=== PATIENT | female | born 1985 | race Two or more races ===

== ENCOUNTER 2016-10-12 18:40 | Emergency (ER) | payer SELFPAY ==
--- NOTE | 2016-10-12 19:57 | ER Document Report ---
ED Medical Screen (RME) - General Chief Complaint: Vag Bleeding, +preg <12wks Stated Complaint: VAGINAL BLEEDING Notes: 3 weeks , started spotting with lower abdominal cramping and low back pain. + dysuria. no nausea, vomiting or fever TRAVEL OUTSIDE OF THE [place] IN LAST 30 DAYS: No - Related Data Allergies/Adverse Reactions: No Known Allergies Allergy (Unverified 05/02/16 09:20) Past Medical History - Immunizations Hx Diphtheria, Pertussis, Tetanus Vaccination: Yes
[2016-10-12 20:41] LABS: ABSOLUTE EOSINOPHILS # (AUTO) 0.2 10^3/uL (0.0-0.6); ABSOLUTE LYMPHOCYTES (AUTO) 2.1 10^3/uL (0.5-4.7); ABSOLUTE MONOCYTES (AUTO) 0.9 10^3/uL (0.1-1.4); ABSOLUTE NEUT (AUTO) 10.5 10^3/uL (1.7-8.2); BASOPHILS % (AUTO) 0.2 % (0-2); EOSINOPHILS % (AUTO) 1.7 % (0-6); HEMATOCRIT 38.9 % (36.0-47.0); HEMOGLOBIN 13.3 g/dL (12.0-15.5); MEAN CORPUSCULAR HGB CONC 34.1 g/dL (32.0-36.0); MEAN CORPUSCULAR VOLUME 85 fl (80-97); MONOCYTES % (AUTO) 6.2 % (3-13); RED BLOOD COUNT 4.58 10^6/uL (3.72-5.28); RED CELL DISTRIBUTION WIDTH 13.7 % (11.5-14.0); SEGMENTED NEUTROPHILS % (AUTO) 76.9 % (42-78); WHITE BLOOD COUNT 13.7 10^3/uL (4.0-10.5)
[2016-10-12 20:47] LABS: APPEARANCE,URINE SLIGHTLY-CLOUDY; BILIRUBIN,URINE NEGATIVE (NEGATIVE); GLUCOSE, URINE NEGATIVE (NEGATIVE); KETONES,URINE TRACE mg/dL (NEGATIVE); LEUKOCYTE ESTERASE,URINE NEGATIVE (NEGATIVE); NITRITE,URINE NEGATIVE (NEGATIVE); PROTEIN,URINE NEGATIVE (NEGATIVE); URINE SPECIFIC GRAVITY 1.008; UROBILINOGEN,URINE NEGATIVE mg/dL (<2.0)
--- NOTE | 2016-10-13 02:24 | ER Document Report ---
ED General - General Chief Complaint: Vag Bleeding, +preg <12wks Stated Complaint: VAGINAL BLEEDING Notes: Patient is a 31-year-old female at unknown gestation who presents with vaginal bleeding and mild suprapubic abdominal pain. States this started several hours prior to arrival. She has not yet established primary OB care. Describes abdominal pain as a mild, cramping pain. States that the bleeding was about typical for a menstrual period. Denies any additional associated symptoms. No fever or vomiting. States that her prior did and in a spontaneous miscarriage at 9 weeks. TRAVEL OUTSIDE OF THE [place] IN LAST 30 DAYS: No - HPI Onset: This afternoon Onset/Duration: Gradual Quality of pain: Cramping Severity: Mild Pain Level: 1 Associated symptoms: Other - Vaginal bleeding Exacerbated by: Denies Relieved by: Denies Similar symptoms previously: Yes Recently seen / treated by doctor: No - Related Data Allergies/Adverse Reactions: No Known Allergies Allergy (Unverified 05/02/16 09:20) Past Medical History - General Information source: Patient - Social History Smoking Status: Never Smoker Frequency of alcohol use: None Drug Abuse: None Lives with: Spouse/Significant other Family History: Reviewed & Not Pertinent - Immunizations Hx Diphtheria, Pertussis, Tetanus Vaccination: Yes Review of Systems - Review of Systems Notes: Constitutional: Negative for fever. HENT: Negative for sore throat. Eyes: Negative for visual changes. Cardiovascular: Negative for chest pain. Respiratory: Negative for shortness of breath. Gastrointestinal: Positive for mild suprapubic abdominal cramping, vomiting or diarrhea. Genitourinary: Negative for dysuria. Positive for vaginal bleeding Musculoskeletal: Negative for back pain. Skin: Negative for rash. Neurological: Negative for headaches, weakness or numbness. 10 point ROS negative except as marked above and in HPI. Physical Exam - Vital signs Vitals: Pulse BP Pulse Ox 80 131/79 H 100 10/13/16 02:37 10/13/16 02:37 10/13/16 02:37 Interpretation: Normal Notes: PHYSICAL EXAMINATION: GENERAL: Well-appearing, well-nourished and in no acute distress. HEAD: Atraumatic, normocephalic. EYES: Pupils equal round and reactive to light, extraocular movements intact, sclera anicteric, conjunctiva are normal. ENT: nares patent, oropharynx clear without exudates. Moist mucous membranes. NECK: Normal range of motion, supple without lymphadenopathy LUNGS: Breath sounds clear to auscultation bilaterally and equal. No wheezes rales or rhonchi. HEART: Regular rate and rhythm without murmurs ABDOMEN: Soft, nontender, normoactive bowel sounds. No guarding, no rebound. No masses appreciated. EXTREMITIES: Normal range of motion, no pitting or edema. No cyanosis. NEUROLOGICAL: No focal neurological deficits. Moves all extremities spontaneously and on command. PSYCH: Normal mood, normal affect. SKIN: Warm, Dry, normal turgor, no rashes or lesions noted. Course - Re-evaluation Re-evalutation: 10/13/16 04:57 Patient presents with vaginal bleeding now discontinued and mild suprapubic abdominal pain in a setting of . Her exact gestational age is unclear although her quantitative beta hCG is at 3300. I was unable to visualize anything on a bedside ultrasound so formal ultrasound was obtained. Likewise no intrauterine could be identified likewise no ectopic was identified. I discussed this case with Dr. Leary the RAFTER CUTTING MACHINE OPERATOR on-call who has recommended the patient follow-up in clinic in the morning. The remainder patient's laboratories are likewise unremarkable and RhoGAM is not indicated. Her abdominal exam remained benign.At this time will discharge with return precautions and follow-up recommendations. Verbal discharge instructions given a the bedside and opportunity for questions given. Medication warnings reviewed. Patient is in agreement with this plan and has verbalized understanding of return precautions and the need for follow-up in the morning - Vital Signs Vital signs: Temp Pulse Resp BP Pulse Ox 80 131/79 H 100 10/13/16 02:37 10/13/16 02:37 10/13/16 02:37 - Laboratory Result Diagrams: 10/12/16 20:05 Laboratory results interpreted by me: 10/12/16 10/12/16 10/12/16 20:05 20:05 20:05 WBC 13.7 H Absolute Neutrophils 10.5 H Beta HCG, Quant 3354.90 H Urine Ketones TRACE H Urine Blood LARGE H - Diagnostic Test Radiology reviewed: Reports reviewed Discharge - Discharge Clinical Impression: First trimester bleeding, of unknown anatomic location Condition: Good Disposition: HOME, SELF-CARE Additional Instructions: You need to go to the women's clinic tomorrow morning. Please call 8 AM on the number provided in your discharge paperwork to schedule this appointment. Is very important that you do not miss this appointment. Please return if you develop severe abdominal pain, bleeding that goes through more than 2 pads for more than 2 hours, pass out, or have any other symptoms that are concerning to you. Referrals: ABBIE APARICIO, [SUSANNE CHISHOLM] - Follow up tomorrow
[2016-10-13 02:42] VITALS: BP 131/79
== END 2016-10-13 02:42 | disposition home or self-care (01) ==
LOC: ER 18:40
DX: O46.91 Antepartum hemorrhage, unspecified, first trimester (principal); R10.9 Unspecified abdominal pain
CPT/HCPCS: 36415; 76817; 81001; 84702; 85025; 86900; 86901; 99284

== ENCOUNTER 2016-10-13 17:06 | Observation (INO) | payer SELFPAY ==
[2016-10-13] MEDS ORDERED: FLUCONAZOLE 100 MG TABLET PO ONE (18:45)
[2016-10-13] MEDS: RINGERS SOLUTION,LACTATED 1,000 ML IV PRN (18:53)
[2016-10-13] MEDS ORDERED: INFLUENZA ADLT QUAD (36MOS+) 2016-17 VAC 0.5 ML SYR IM PRN (19:37)
[2016-10-14] MEDS: RINGERS SOLUTION,LACTATED 1,000 ML IV PRN ×2 (01:58→10:04)
[2016-10-14 07:44] LABS: ABSOLUTE EOSINOPHILS # (AUTO) 0.3 10^3/uL (0.0-0.6); ABSOLUTE LYMPHOCYTES (AUTO) 1.8 10^3/uL (0.5-4.7); ABSOLUTE MONOCYTES (AUTO) 0.7 10^3/uL (0.1-1.4); BASOPHILS % (AUTO) 0.3 % (0-2); EOSINOPHILS % (AUTO) 2.9 % (0-6); HEMATOCRIT 36.2 % (36.0-47.0); HEMOGLOBIN 12.4 g/dL (12.0-15.5); LYMPHOCYTES % (AUTO) 20.2 % (13-45); MEAN CORPUSCULAR HEMOGLOBIN 29.2 pg (27.0-33.4); MEAN CORPUSCULAR HGB CONC 34.2 g/dL (32.0-36.0); MEAN CORPUSCULAR VOLUME 85 fl (80-97); MONOCYTES % (AUTO) 8.1 % (3-13); RED BLOOD COUNT 4.26 10^6/uL (3.72-5.28); RED CELL DISTRIBUTION WIDTH 13.7 % (11.5-14.0); SEGMENTED NEUTROPHILS % (AUTO) 68.5 % (42-78); WHITE BLOOD COUNT 8.8 10^3/uL (4.0-10.5)
[2016-10-14 08:02] LABS: ALANINE AMINOTRANSFERASE 76 U/L (9-52); ALBUMIN 2.9 g/dL (3.5-5.0); ALKALINE PHOSPHATASE 46 U/L (38-126); ANION GAP 10 (5-19); ASPARTATE AMINO TRANSFERASE 44 U/L (14-36); BILIRUBIN,TOTAL 0.5 mg/dL (0.2-1.3); BLOOD UREA NITROGEN 11 mg/dL (7-20); CALCIUM 8.8 mg/dL (8.4-10.2); CARBON DIOXIDE 23 mmol/L (22-30); CHLORIDE 106 mmol/L (98-107); CREATININE RESULT 0.65 mg/dL (0.52-1.25); GLUCOSE 99 mg/dL (75-110); POTASSIUM 3.7 mmol/L (3.6-5.0); SODIUM 139.2 mmol/L (137-145); TOTAL PROTEIN 5.4 g/dL (6.3-8.2)
[2016-10-14] MEDS ORDERED: MISOPROSTOL 0.2 MG TABLET PO ONE (12:00)
[2016-10-14 12:07] VITALS: BP 113/61
--- NOTE | 2016-10-14 15:37 | PDOC DISCHARGE SUMMARY ---
General - Admit/Disc Date/PCP Admission Date/Primary Care Provider: 10/13/16 17:06 KINGS NEGRON MD Discharge Date: 10/14/16 - Discharge Diagnosis (1) Incomplete Is this a current diagnosis for this admission?: YesSummary: Pt admitted with spotting and low back pain - Additional Information Resuscitation Status: Full Code Discharge Diet: As Tolerated, Regular Discharge Activity: Balance Activity w/Rest, Pelvic Rest Home Medications: Multivitamin [Multivitamins] 1 each PO DAILY 10/13/16 History of Present Illness History of Present Illness: DUC CONTRERAS is a 31 year old female Pt had spotting and low back pain. Pain resolved spontaneously. She had bhcg 3400 and nonconclusive sono findings 2 day ago. She was admitted for evaluation possible ectopic Hospital Course Hospital Course: PT had spontaneous resolution of pain and bleeding. BHCG only increased to 4975 which is less than expected. sono shows possible collapsing gestational sac in uterus and intruterine fluid. No iup or yolk sac can be identified. both ovaries appear nl and no ectopic preg is evident. Options were discussed with the pt through the [facility] system and included observation, medical induction of miscarriage through cytotec and surgical mgmt. Pt wanted to try cytotec and go home over weekend. She will f/u Monday in office. Precautions were discussed and pt advised to return to ED if complications. Physical Exam - Physical Exam Vital Signs: Temp Pulse Resp BP Pulse Ox 98.2 F 72 15 113/61 98 10/14/16 11:49 10/14/16 11:49 10/14/16 11:49 10/14/16 11:49 10/14/16 11:49 Intake & Output 10/13/16 10/14/16 10/15/16 06:59 06:59 06:59 Intake Total 300 Balance 300 Weight 68.4 kg GI/Abdominal exam: PRESENT: normal bowel sounds, soft. ABSENT: distended, guarding, mass, organolmegaly, rebound, tenderness Result Laboratory Results: 10/14/16 07:14 10/14/16 07:14 10/14/16 10/14/16 10/14/16 07:14 07:14 07:14 WBC 8.8 RBC 4.26 Hgb 12.4 Hct 36.2 MCV 85 MCH 29.2 MCHC 34.2 RDW 13.7 Plt Count 310 Seg Neutrophils % 68.5 Lymphocytes % 20.2 Monocytes % 8.1 Eosinophils % 2.9 Basophils % 0.3 Absolute Neutrophils 6.0 Absolute Lymphocytes 1.8 Absolute Monocytes 0.7 Absolute Eosinophils 0.3 Absolute Basophils 0.0 Sodium 139.2 Potassium 3.7 Chloride 106 Carbon Dioxide 23 Anion Gap 10 BUN 11 Creatinine 0.65 Est GFR ( Amer) > 60 Est GFR (Non-Af Amer) > 60 Glucose 99 Calcium 8.8 Total Bilirubin 0.5 AST 44 H ALT 76 H Alkaline Phosphatase 46 Total Protein 5.4 L Albumin 2.9 L Blood Type Cancelled Antibody Screen Cancelled 10/14/16 07:52 WBC RBC Hgb Hct MCV MCH MCHC RDW Plt Count Seg Neutrophils % Lymphocytes % Monocytes % Eosinophils % Basophils % Absolute Neutrophils Absolute Lymphocytes Absolute Monocytes Absolute Eosinophils Absolute Basophils Sodium Potassium Chloride Carbon Dioxide Anion Gap BUN Creatinine Est GFR ( Amer) Est GFR (Non-Af Amer) Glucose Calcium Total Bilirubin AST ALT Alkaline Phosphatase Total Protein Albumin Blood Type A POSITIVE Antibody Screen NEGATIVE Plan Discharge Plan: Discharge home after cytotec 800mcg given po. Pt to take motrin/tylenol as needed Pt scheduled for f/u Mon Morning. Pt also met with business planner prior to d/c
[2016-10-15 06:38] LABS: HEPATITIS C VIRUS AB <0.1 s/co ratio (0.0-0.9)
== END 2016-10-14 16:35 | disposition home or self-care (01) ==
LOC: 2S 17:06
PROVIDERS: ADMIT Specialist; ATTEND Specialist
DX: O03.39 Incomplete spontaneous abortion with other complications (principal); M54.5 Low back pain; R10.2 Pelvic and perineal pain; O26.851 Spotting complicating pregnancy, first trimester; Z3A.01 Less than 8 weeks gestation of pregnancy
CPT/HCPCS: 86900; 86901; 36415; 86850; 84702; 85025; 80053; 87340 ×2; 86704; 86705; 86706; 86707; 86803; 87350; G0378 ×2; G0379; J7120 ×2

== ENCOUNTER → 2016-10-17 | Outpatient (CLI) | payer SELFPAY | LOC: LAB 09:55 | PROVIDERS: ATTEND Specialist | DX: O03.89 Complete or unspecified spontaneous abortion with other complications (principal) | CPT/HCPCS: 36415; 84702 ==

== ENCOUNTER → 2016-10-24 | Outpatient (CLI) | payer SELFPAY | LOC: LAB 11:24 | PROVIDERS: ATTEND Specialist | DX: O03.9 Complete or unspecified spontaneous abortion without complication (principal) | CPT/HCPCS: 36415; 84702 ==

== ENCOUNTER 2017-10-19 12:23 | Emergency (ER) | payer OTHER ==
[2017-10-19] MEDS ORDERED: NORMAL SALINE 1000 ML 1,000 ML IV PRN ×3 (14:22→17:56)
--- NOTE | 2017-10-19 14:26 | ER Document Report ---
ED Medical Screen (RME) - General Chief Complaint: Abdominal Pain Stated Complaint: ABDOMINAL PAIN Time Seen by Provider: 10/19/17 14:18 TRAVEL OUTSIDE OF THE [place] IN LAST 30 DAYS: No - HPI Notes: 10/19/17 14:24 32-year-old female presents today with complaints of right lower quadrant pain and right flank pain 1 day. Patient states pain is continuous, feels stabbing. Denies any trauma. Patient's last period was September 25, 2017. Patient is sexually active. Unsure . Has not tried any over-the- counter medications. Denies any chest pain, shortness of breath, nausea, vomiting, diarrhea, blurred vision, double vision, loss of vision. Denies any lightheadedness or dizziness. Denies any history of ovarian cysts or torsions. Patient denies any fevers or chills. States pain is getting worse with time. I have greeted and performed a rapid initial assessment of this patient. A comprehensive ED assessment and evaluation of the patient, analysis of test results and completion of medical decision making process will be conducted by an additional ED providers. - Related Data Allergies/Adverse Reactions: No Known Allergies Allergy (Verified 10/19/17 12:23) Home Medications: Current Home Medications No Home Medications 10/19/17 [History] Past Medical History - Social History Chew tobacco use (# tins/day): No Frequency of alcohol use: None Drug Abuse: None - Past Medical History Cardiac Medical History: Denies: Hx Congestive Heart Failure, Hx Heart Attack, Hx Hypertension Pulmonary Medical History: Denies: Hx Asthma, Hx Bronchitis, Hx COPD, Hx Pneumonia, Hx Tuberculosis Neurological Medical History: Denies: Hx Seizures Renal/ Medical History: Denies: Hx End Stage Renal Disease, Hx Kidney Stones, Hx Peritoneal Dialysis GI Medical History: Reports: Hx Gastroesophageal Reflux Disease. Denies: Hx Cirrhosis, Hx Ulcer Musculoskeltal Medical History: Denies Hx Arthritis, Denies Hx Multiple Sclerosis Psychiatric Medical History: Denies: Hx Bipolar Disorder, Hx Depression, Hx Schizophrenia - Immunizations Hx Diphtheria, Pertussis, Tetanus Vaccination: Yes Physical Exam - Vital signs Vitals: Temp Pulse Resp BP Pulse Ox 98.6 F 87 14 135/87 H 99 10/19/17 12:29 10/19/17 12:29 10/19/17 12:29 10/19/17 12:29 10/19/17 12:29 Course - Vital Signs Vital signs: Temp Pulse Resp BP Pulse Ox 98.6 F 87 14 135/87 H 99 10/19/17 12:29 10/19/17 12:29 10/19/17 12:29 10/19/17 12:29 10/19/17 12:29
[2017-10-19 14:56] LABS: ABSOLUTE BASOPHILS # (AUTO) 0.1 10^3/uL (0.0-0.2); ABSOLUTE EOSINOPHILS # (AUTO) 0.2 10^3/uL (0.0-0.6); ABSOLUTE LYMPHOCYTES (AUTO) 2.2 10^3/uL (0.5-4.7); ABSOLUTE MONOCYTES (AUTO) 0.7 10^3/uL (0.1-1.4); ABSOLUTE NEUT (AUTO) 8.1 10^3/uL (1.7-8.2); BASOPHILS % (AUTO) 0.6 % (0-2); EOSINOPHILS % (AUTO) 1.5 % (0-6); HEMATOCRIT 42.1 % (36.0-47.0); HEMOGLOBIN 14.2 g/dL (12.0-15.5); LYMPHOCYTES % (AUTO) 19.4 % (13-45); MEAN CORPUSCULAR HEMOGLOBIN 28.4 pg (27.0-33.4); MEAN CORPUSCULAR HGB CONC 33.7 g/dL (32.0-36.0); MEAN CORPUSCULAR VOLUME 84 fl (80-97); MONOCYTES % (AUTO) 5.9 % (3-13); PLATELET COUNT 448 10^3/uL (150-450); RED BLOOD COUNT 4.99 10^6/uL (3.72-5.28); RED CELL DISTRIBUTION WIDTH 13.5 % (11.5-14.0); SEGMENTED NEUTROPHILS % (AUTO) 72.6 % (42-78); TOTAL CELLS COUNTED % (AUTO) 100 %; WHITE BLOOD COUNT 11.2 10^3/uL (4.0-10.5)
[2017-10-19 15:00] LABS: APPEARANCE,URINE SLIGHTLY-CLOUDY; BILIRUBIN,URINE NEGATIVE (NEGATIVE); COLOR,URINE YELLOW; GLUCOSE, URINE NEGATIVE (NEGATIVE); KETONES,URINE 20 mg/dL (NEGATIVE); LEUKOCYTE ESTERASE,URINE NEGATIVE (NEGATIVE); NITRITE,URINE NEGATIVE (NEGATIVE); PROTEIN,URINE NEGATIVE (NEGATIVE); UROBILINOGEN,URINE NEGATIVE mg/dL (<2.0)
[2017-10-19 15:19] LABS: ALANINE AMINOTRANSFERASE 26 U/L (9-52); ALBUMIN 4.6 g/dL (3.5-5.0); ALKALINE PHOSPHATASE 77 U/L (38-126); ANION GAP 15 (5-19); ASPARTATE AMINO TRANSFERASE 18 U/L (14-36); BILIRUBIN,DIRECT 0.2 mg/dL (0.0-0.4); BILIRUBIN,TOTAL 0.8 mg/dL (0.2-1.3); BLOOD UREA NITROGEN 14 mg/dL (7-20); CALCIUM 10.3 mg/dL (8.4-10.2); CARBON DIOXIDE 23 mmol/L (22-30); CHLORIDE 105 mmol/L (98-107); GLUCOSE 94 mg/dL (75-110); POTASSIUM 3.9 mmol/L (3.6-5.0); SODIUM 143.3 mmol/L (137-145); TOTAL PROTEIN 7.8 g/dL (6.3-8.2)
--- NOTE | 2017-10-19 15:38 | ER Document Report ---
ED General - General Chief Complaint: Abdominal Pain Stated Complaint: ABDOMINAL PAIN Time Seen by Provider: 10/19/17 14:18 TRAVEL OUTSIDE OF THE [place] IN LAST 30 DAYS: No - HPI Notes: 32-year-old female presents today with complaints of right lower quadrant pain and right flank pain 1 day. Patient states pain is continuous, feels stabbing. Denies any trauma. Patient's last period was September 25, 2017. Patient is sexually active. Unsure . Menstrual period was September has not tried any [id number] medications. Denies any chest pain, shortness of breath, nausea, vomiting, diarrhea, blurred vision, double vision, loss of vision. Denies any lightheadedness or dizziness. Denies any history of ovarian cysts or torsions. Patient denies any fevers or chills. States pain is getting worse with time. I have greeted and performed a rapid initial assessment of this patient. pain is 4/10, sharp. - Related Data Allergies/Adverse Reactions: No Known Allergies Allergy (Verified 10/19/17 12:23) Past Medical History - General Information source: Patient - Social History Smoking Status: Never Smoker Chew tobacco use (# tins/day): No Frequency of alcohol use: None Drug Abuse: None Family History: Reviewed & Not Pertinent Patient has suicidal ideation: No Patient has homicidal ideation: No - Past Medical History Cardiac Medical History: Denies: Hx Congestive Heart Failure, Hx Heart Attack, Hx Hypertension Pulmonary Medical History: Denies: Hx Asthma, Hx Bronchitis, Hx COPD, Hx Pneumonia, Hx Tuberculosis Neurological Medical History: Denies: Hx Seizures Renal/ Medical History: Denies: Hx End Stage Renal Disease, Hx Kidney Stones, Hx Peritoneal Dialysis GI Medical History: Reports: Hx Gastroesophageal Reflux Disease. Denies: Hx Cirrhosis, Hx Ulcer Musculoskeltal Medical History: Denies Hx Arthritis, Denies Hx Multiple Sclerosis Psychiatric Medical History: Denies: Hx Bipolar Disorder, Hx Depression, Hx Schizophrenia - Immunizations Hx Diphtheria, Pertussis, Tetanus Vaccination: Yes Review of Systems - Review of Systems Constitutional: No symptoms reported EENT: No symptoms reported Cardiovascular: No symptoms reported Respiratory: No symptoms reported Gastrointestinal: See HPI Genitourinary: No symptoms reported Female Genitourinary: No symptoms reported Musculoskeletal: No symptoms reported Skin: No symptoms reported Hematologic/Lymphatic: No symptoms reported Neurological/Psychological: No symptoms reported -: Yes All other systems reviewed and negative Physical Exam - Vital signs Vitals: Temp Pulse Resp BP Pulse Ox 98.6 F 87 14 135/87 H 99 10/19/17 12:29 10/19/17 12:29 10/19/17 12:29 10/19/17 12:29 10/19/17 12:29 - Notes Notes: PHYSICAL EXAMINATION: GENERAL: Well-appearing, well-nourished and in no acute distress. HEAD: Atraumatic, normocephalic. EYES: Pupils equal round and reactive to light, extraocular movements intact, conjunctiva are normal. ENT: Nares patent, oropharynx clear without exudates. Moist mucous membranes. NECK: Normal range of motion, supple without lymphadenopathy LUNGS: Breath sounds clear to auscultation bilaterally and equal. No wheezes rales or rhonchi. HEART: Regular rate and rhythm without murmurs ABDOMEN: Soft, nondistended abdomen, noted tenderness on RLQ, with rebound pain. Noted Right cva tenderness, No guarding, no rebound. No masses appreciated. Female : deferred Musculoskeletal: Normal range of motion, no pitting or edema. No cyanosis. NEUROLOGICAL: Cranial nerves grossly intact. Normal speech, normal gait. Normal sensory, motor exams PSYCH: Normal mood, normal affect. SKIN: Warm, Dry, normal turgor, no rashes or lesions noted. Course - Re-evaluation Re-evalutation: 10/19/17 18:54 with patient via language line to discuss the fact that she is , awaiting abdominal ultrasound and OB ultrasound. Patient denies any pain. PPatient does not have an BLACK AND WHITE PRINTER OPERATOR, discussed the language line the importance of finding a PHOTOGRAPH TINTER. Discussed care. Questions and concerns were answered. Patient was also made aware of the language line that a new provider will be coming to take over her care for the results of the ultrasound. Patient verbalized an understanding. Physician given to Polly Khalil at 1930 10/19/17 19:28 - Vital Signs Vital signs: Temp Pulse Resp BP Pulse Ox 98.6 F 87 14 135/87 H 99 10/19/17 12:29 10/19/17 12:29 10/19/17 12:29 10/19/17 12:29 10/19/17 12:29 - Laboratory Result Diagrams: 10/19/17 14:35 10/19/17 14:35 Laboratory results interpreted by me: 10/19/17 10/19/17 10/19/17 14:35 14:35 14:35 WBC 11.2 H Calcium 10.3 H Serum HCG, Qual POSITIVE H Beta HCG, Quant Urine Ketones Urine Blood Urine Ascorbic Acid Urine HCG, Qual 10/19/17 10/19/17 14:35 14:35 WBC Calcium Serum HCG, Qual Beta HCG, Quant 523.30 H Urine Ketones 20 H Urine Blood SMALL H Urine Ascorbic Acid 40 H Urine HCG, Qual POSITIVE H Discharge - Discharge Clinical Impression: Abdominal pain Qualifiers: Abdominal location: right lower quadrant Qualified Code(s): R10.31 - Right lower quadrant pain Clinical Impression: (Ruled Out): UTI (urinary tract infection) during Condition: Good Instructions: ([facility]) Prescriptions: Nitrofurantoin Monohyd/M-Cryst [Macrobid 100 mg Capsule] 1 tab PO BID #14 capsule Referrals: LUIS HUSSEIN MD [ACTIVE STAFF] - Follow up in 3-5 days (f/u to establish obgyn care. ) DESHAWN PRAJAPATI MD [COMMUNITY BASED STAFF] - Follow up in 1 week
--- NOTE | 2017-10-19 19:51 | RADIOLOGY REPORT (SQ) ---
EXAM DESCRIPTION: U/S ABDOMEN LIMITED W/O DOP COMPLETED DATE/TIME: 10/19/2017 7:40 pm REASON FOR STUDY: RLQ PAIN, RT FLANK PAIN COMPARISON: None. TECHNIQUE: Static and real time plaza scale imaging performed of the right lower quadrant with additi onal compression maneuvers. LIMITATIONS: None. FINDINGS: APPENDIX: Not visualized. BOWEL: Active peristalsis with fluid in the bowel. COMPRESSION MANEUVERS: No rebound pain with compression. OTHER: Right ovary not identified. Right kidney: No hydronephrosis. Possible peripheral calculus. IMPRESSION: APPENDIX NOT IDENTIFIED. ACTIVE PERISTALSIS. No hydronephrosis of the right kidney. Possible peripheral calculus. Right ovary not seen. TECHNICAL DOCUMENTATION: JOB ID: [id number] [employer]- All Rights Reserved
--- NOTE | 2017-10-19 19:56 | RADIOLOGY REPORT (SQ) ---
EXAM DESCRIPTION: U/S OB TRANSVAG W/DOPPLER COMPLETED DATE/TIME: 10/19/2017 7:37 pm REASON FOR STUDY: + with RLQ/Right flank pain COMPARISON: None. TECHNIQUE: Transvaginal static and realtime grayscale images acquired of the pelvis. Additional zabrina cted spectral and color Doppler images recorded. All images stored on PACs. BHCG: Not available. LIMITATIONS: None. FINDINGS: UTERUS: No visualized intrauterine . Complex mass within the cervix measuring 2. 2 cm. RIGHT ADNEXA: Normal ovary with normal vascular flow. No adnexal free fluid. No adnexal masses. LEFT ADNEXA: Normal ovary with normal vascular flow. No adnexal free fluid. 2.2 cm cyst with internal debris. FREE FLUID: None. OTHER: No other significant finding. IMPRESSION: NO VISUALIZED INTRA- OR EXTRAUTERINE . bHCG LEVEL NOT AVAILABLE FOR CORRELATION WITH US FINDINGS. Possible AB in progress with complex mass in the cervix. ECTOPIC CANNOT BE EXCLUDED. FOLLOW-UP ULTRASOUND AND SERIAL BHCG LEVELS STRONGLY RECOMMENDED TO ACCURATELY ASSESS STATU S. TECHNICAL DOCUMENTATION: JOB ID: [id number] [facility]- All Rights Reserved
[2017-10-19 22:11] VITALS: BP 127/80
== END 2017-10-19 21:50 | disposition home or self-care (01) ==
LOC: ER 12:23
DX: O03.9 Complete or unspecified spontaneous abortion without complication (principal); N20.0 Calculus of kidney
CPT/HCPCS: 99284; 96360; 96361; 86900; 86901; 36415; 87086; 84702; 83690; 84703; 85025; 81025; 86140; 87088; 80053; 81001; 76817; 76705; 93976; J7030

== ENCOUNTER → 2017-11-17 | Outpatient (CLI) | payer OTHER ==
--- NOTE | 2017-11-17 08:55 | RADIOLOGY REPORT (SQ) ---
EXAM DESCRIPTION: U/S OB TRANSVAGINAL W/O DOP COMPLETED DATE/TIME: 11/17/2017 8:21 am REASON FOR STUDY: VIABILITY (O36.80X0) O36.80X0 W INCONCLUSIVE VIABILITY, UNSP COMPARISON: 10/13/2016 OB ultrasound TECHNIQUE: Endovaginal static and realtime grayscale images acquired of the pelvis. Additional selec tanna spectral and color Doppler images recorded. All images stored [facility] PACs. [facility]. Last menses 09/20/2017 LIMITATIONS: None. FINDINGS: FETUS: Living intrauterine . EGA: 8 weeks 4 days SUZETTE: 06/25/2018 FHR: 169 beats per minute. SUBCHORIONIC BLEED: No SIZE OF BLEED: Not applicable. UTERUS: No masses. No anomalies. Uterus measures 9.4 x 6 x 5.8 cm in size CERVICAL LENGTH: 2.9 cm Closed. RIGHT ADNEXA: Normal ovary with normal vascular flow. Right ovary 2.4 x 2.1 x 2.1 cm in size. No adnexal free fluid. No adnexal masses. LEFT ADNEXA: Normal ovary with normal vascular flow. Left ovary 4.2 x 3.1 x 3.3 cm in size, with a 3 cm cyst probably the corpus luteum. No adnexal free fluid. No adnexal masses. FREE FLUID: None. OTHER: No other significant finding. IMPRESSION: LIVING INTRAUTERINE . EGA 8 weeks 4 days Trimester of : First - 0 to 13 weeks. TECHNICAL DOCUMENTATION: JOB ID: [id number]- All Rights Reserved
== END ==
LOC: RAD 07:28
PROVIDERS: ATTEND Advanced Practice Midwife
DX: O36.80X0 Pregnancy with inconclusive fetal viability, not applicable or unspecified (principal); Z3A.08 8 weeks gestation of pregnancy
CPT/HCPCS: 76817

== ENCOUNTER 2017-11-27 00:14 | Emergency (ER) | payer OTHER ==
[2017-11-27 02:04] LABS: ABSOLUTE BASOPHILS # (AUTO) 0.1 10^3/uL (0.0-0.2); ABSOLUTE EOSINOPHILS # (AUTO) 0.3 10^3/uL (0.0-0.6); ABSOLUTE LYMPHOCYTES (AUTO) 1.9 10^3/uL (0.5-4.7); ABSOLUTE MONOCYTES (AUTO) 0.8 10^3/uL (0.1-1.4); ABSOLUTE NEUT (AUTO) 9.1 10^3/uL (1.7-8.2); BASOPHILS % (AUTO) 0.5 % (0-2); EOSINOPHILS % (AUTO) 2.3 % (0-6); HEMATOCRIT 40.3 % (36.0-47.0); HEMOGLOBIN 13.6 g/dL (12.0-15.5); LYMPHOCYTES % (AUTO) 15.3 % (13-45); MEAN CORPUSCULAR HEMOGLOBIN 28.6 pg (27.0-33.4); MEAN CORPUSCULAR HGB CONC 33.9 g/dL (32.0-36.0); MEAN CORPUSCULAR VOLUME 84 fl (80-97); MONOCYTES % (AUTO) 6.9 % (3-13); PLATELET COUNT 348 10^3/uL (150-450); RED BLOOD COUNT 4.78 10^6/uL (3.72-5.28); RED CELL DISTRIBUTION WIDTH 13.7 % (11.5-14.0); TOTAL CELLS COUNTED % (AUTO) 100 %; WHITE BLOOD COUNT 12.1 10^3/uL (4.0-10.5)
[2017-11-27] MEDS ORDERED: ACETAMINOPHEN 325 MG TABLET PO ONE (02:04)
[2017-11-27 02:17] LABS: ALANINE AMINOTRANSFERASE 27 U/L (9-52); ALBUMIN 4.3 g/dL (3.5-5.0); ALKALINE PHOSPHATASE 64 U/L (38-126); ANION GAP 12 (5-19); ASPARTATE AMINO TRANSFERASE 13 U/L (14-36); BILIRUBIN,DIRECT 0.4 mg/dL (0.0-0.4); BILIRUBIN,TOTAL 0.4 mg/dL (0.2-1.3); BLOOD UREA NITROGEN 8 mg/dL (7-20); CALCIUM 9.9 mg/dL (8.4-10.2); CARBON DIOXIDE 23 mmol/L (22-30); CHLORIDE 104 mmol/L (98-107); GLUCOSE 92 mg/dL (75-110); LIPASE 62.9 U/L (23-300); POTASSIUM 3.9 mmol/L (3.6-5.0); SODIUM 138.8 mmol/L (137-145); TOTAL PROTEIN 7.4 g/dL (6.3-8.2)
--- NOTE | 2017-11-27 02:34 | ER Document Report ---
ED GI/ - General Chief Complaint: Flank Pain Stated Complaint: LEFT FLANK PAIN Time Seen by Provider: 11/27/17 02:04 Mode of Arrival: Ambulatory Information source: Patient TRAVEL OUTSIDE OF THE U.S. IN LAST 30 DAYS: No - HPI Notes: 11/27/17 02:32 32-year-old lady with no significant past medical history who is at approximately 12 weeks gestation presented today for evaluation of left lower quadrant abdominal pain that started this morning. Pain is localized to the left lower quadrant, no radiation, achy, worse with movement and palpation, severity of symptoms is 4 out of 10. Patient denies any nausea, vomiting, diarrhea, hematuria or dysuria. Patient does not have any vaginal bleeding. Patient did have ultrasound with this that revealed intra-uterine . - Related Data Allergies/Adverse Reactions: No Known Allergies Allergy (Verified 10/19/17 12:23) Past Medical History - Social History Smoking Status: Never Smoker Frequency of alcohol use: None Drug Abuse: None Family History: Reviewed & Not Pertinent Patient has suicidal ideation: No Patient has homicidal ideation: No - Past Medical History Cardiac Medical History: Denies: Hx Congestive Heart Failure, Hx Heart Attack, Hx Hypertension Pulmonary Medical History: Denies: Hx Asthma, Hx Bronchitis, Hx COPD, Hx Pneumonia, Hx Tuberculosis Neurological Medical History: Denies: Hx Seizures Renal/ Medical History: Denies: Hx End Stage Renal Disease, Hx Kidney Stones, Hx Peritoneal Dialysis GI Medical History: Reports: Hx Gastroesophageal Reflux Disease. Denies: Hx Cirrhosis, Hx Ulcer Musculoskeltal Medical History: Denies Hx Arthritis, Denies Hx Multiple Sclerosis Psychiatric Medical History: Denies: Hx Bipolar Disorder, Hx Depression, Hx Schizophrenia - Immunizations Hx Diphtheria, Pertussis, Tetanus Vaccination: Yes Review of Systems - Review of Systems Notes: REVIEW OF SYSTEMS: CONSTITUTIONAL: -fevers, -chills EENT: -eye pain, -difficulty swallowing, -nasal congestion CARDIOVASCULAR: -chest pain, -syncope. RESPIRATORY: -cough, -SOB GASTROINTESTINAL: + Abdominal pain, -nausea, -vomiting, -diarrhea GENITOURINARY: -dysuria, -hematuria MUSCULOSKELETAL: -back pain, -neck pain SKIN: -rash or skin lesions. HEMATOLOGIC: -easy bruising or bleeding. LYMPHATIC: -swollen, enlarged glands. NEUROLOGICAL: -altered mental status or loss of consciousness, -headache, - neurologic symptoms PSYCHIATRIC: -anxiety, -depression. ALL OTHER SYSTEMS REVIEWED AND NEGATIVE. Physical Exam - Vital signs Vitals: Temp Pulse Resp BP Pulse Ox 98.6 F 76 20 135/83 H 100 11/27/17 01:08 11/27/17 01:08 11/27/17 01:08 11/27/17 01:08 11/27/17 01:08 - Notes Notes: Reviewed vital signs and nursing note as charted by RN. CONSTITUTIONAL: Alert and oriented and responds appropriately to questions HEAD: Normocephalic; atraumatic EYES: PERRL; Conjunctivae clear, sclerae non-icteric ENT: normal nose; no rhinorrhea; moist mucous membranes; pharynx without lesions noted NECK: Supple without meningismus; non-tender; no cervical lymphadenopathy, no masses CARD: Regular rate and rhythm; no murmurs, no clicks, no rubs, no gallops; symmetric distal pulses RESP: Normal chest excursion without splinting or tachypnea; breath sounds clear and equal bilaterally ABD/GI: Normal bowel sounds; non-distended; soft, tenderness to palpation of the left lower quadrant BACK: The back appears normal and is non-tender to palpation EXT: Normal ROM in all joints; non-tender to palpation; no cyanosis, no effusions, no edema SKIN: Normal color for age and race; warm; dry; good turgor; capillary refill < 2 seconds; no acute lesions noted NEURO: .Cranial nerves 3-12 intact. Motor strength 5/5 bilaterally. Sensation intact to touch bilaterally. No pronator drift. Finger to nose intact bilaterally PSYCH: The patient's mood and manner are appropriate. Grooming and personal hygiene are appropriate. Course - Re-evaluation Re-evalutation: 11/27/17 02:33 32-year-old lady with 12 weeks gestation presented today for evaluation of left lower quadrant tenderness to palpation Differential diagnoses includes acute cystitis, urinary tract infection, kidney stone, pancreatitis No suspicion for ectopic given the patient had already confirmed intrauterine We will obtain basic lab work including CBC, CMP, lipase, urinalysis We will give patient Tylenol Patient does not have any vaginal bleeding, no need for RhoGam workup today Reassess patient 11/27/17 03:56 Patient feels much better after Tylenol Patient has mild leukocytosis, no obvious acute cystitis or pyelonephritis Patient has a few red blood cells without any gross hematuria, therefore no suspicion for kidney stone I have discussed the results of lab work with patient as well as her urinalysis She elected to try Tylenol for a few days to see if the pain might go away I have given her strict precautions to come back if her left lower quadrant pain is getting worse, she starts to have fevers or chills Other etiologies can be early diverticulitis, she elected not to do antibiotics at present time and will come back if her symptoms are getting worse - Vital Signs Vital signs: Temp Pulse Resp BP Pulse Ox 98.6 F 76 20 135/83 H 100 11/27/17 01:08 11/27/17 01:08 11/27/17 01:08 11/27/17 01:08 11/27/17 01:08 - Laboratory Result Diagrams: 11/27/17 01:30 11/27/17 01:30 Laboratory results interpreted by me: 11/27/17 11/27/17 11/27/17 01:30 01:30 03:10 WBC 12.1 H Absolute Neutrophils 9.1 H AST 13 L Beta HCG, Quant 211121.00 H Urine Blood SMALL H Procedures - Ultrasound/Bedside Ultrasound/Bedside Time completed: 03:00 Notes: 11/27/17 03:34 Bedside ASSISTANT COACH ultrasound was performed Patient has single live intrauterine with heart tones of 160 Discharge - Discharge Clinical Impression: LLQ abdominal pain Condition: Stable Disposition: HOME, SELF-CARE Instructions: Abdominal Pain ([facility]) Additional Instructions: Please come back if you have worsening abdominal pain, fevers or chills, nausea or vomiting Please continue to take Tylenol for your pain Please scheduled appointment with your ASSISTANT COACH doctor for further management of your
[2017-11-27 03:46] LABS: APPEARANCE,URINE SLIGHTLY HAZY; BILIRUBIN,URINE NEGATIVE (NEGATIVE); COLOR,URINE YELLOW; GLUCOSE, URINE NEGATIVE (NEGATIVE); KETONES,URINE NEGATIVE (NEGATIVE); LEUKOCYTE ESTERASE,URINE NEGATIVE (NEGATIVE); NITRITE,URINE NEGATIVE (NEGATIVE); PROTEIN,URINE NEGATIVE (NEGATIVE); URINE SPECIFIC GRAVITY 1.014; UROBILINOGEN,URINE NEGATIVE mg/dL (<2.0)
[2017-11-27 04:34] VITALS: BP 133/85
== END 2017-11-27 04:20 | disposition home or self-care (01) ==
LOC: ER 00:14
DX: O26.891 Other specified pregnancy related conditions, first trimester (principal); R10.32 Left lower quadrant pain; Z3A.12 12 weeks gestation of pregnancy
CPT/HCPCS: 36415; 80053; 81001; 83690; 84702; 85025; 99284

== ENCOUNTER 2017-12-02 12:55 | Emergency (ER) | payer OTHER ==
--- NOTE | 2017-12-02 13:16 | ER Document Report ---
ED Medical Screen (RME) - General Chief Complaint: Vaginal Bleeding Stated Complaint: ABDOMINAL PAIN, VAGINAL BLEEDING Time Seen by Provider: 12/02/17 13:08 TRAVEL OUTSIDE OF THE U.S. IN LAST 30 DAYS: No - HPI Patient complains to provider of: ; bleeding Onset: This morning - pt is g3 approx 11 wks with c/o vaginal bleeding starting earlier this am. Denies pain. - Related Data Allergies/Adverse Reactions: No Known Allergies Allergy (Verified 10/19/17 12:23) Past Medical History - Social History Frequency of alcohol use: None Drug Abuse: None - Past Medical History Cardiac Medical History: Denies: Hx Congestive Heart Failure, Hx Heart Attack, Hx Hypertension Pulmonary Medical History: Denies: Hx Asthma, Hx Bronchitis, Hx COPD, Hx Pneumonia, Hx Tuberculosis Neurological Medical History: Denies: Hx Seizures Renal/ Medical History: Denies: Hx End Stage Renal Disease, Hx Kidney Stones, Hx Peritoneal Dialysis GI Medical History: Reports: Hx Gastroesophageal Reflux Disease. Denies: Hx Cirrhosis, Hx Ulcer Musculoskeltal Medical History: Denies Hx Arthritis, Denies Hx Multiple Sclerosis Psychiatric Medical History: Denies: Hx Bipolar Disorder, Hx Depression, Hx Schizophrenia - Immunizations Hx Diphtheria, Pertussis, Tetanus Vaccination: Yes Physical Exam - Vital signs Vitals: Temp Pulse Resp BP Pulse Ox 98.4 F 86 18 143/92 H 100 12/02/17 13:03 12/02/17 13:03 12/02/17 13:03 12/02/17 13:03 12/02/17 13:03 Course - Vital Signs Vital signs: Temp Pulse Resp BP Pulse Ox 98.4 F 86 18 143/92 H 100 12/02/17 13:03 12/02/17 13:03 12/02/17 13:03 12/02/17 13:03 12/02/17 13:03
[2017-12-02 14:10] LABS: APPEARANCE,URINE CLOUDY; BILIRUBIN,URINE NEGATIVE (NEGATIVE); COLOR,URINE YELLOW; GLUCOSE, URINE NEGATIVE (NEGATIVE); KETONES,URINE NEGATIVE (NEGATIVE); LEUKOCYTE ESTERASE,URINE NEGATIVE (NEGATIVE); NITRITE,URINE NEGATIVE (NEGATIVE); PROTEIN,URINE 30 mg/dL (NEGATIVE); URINE SPECIFIC GRAVITY 1.013; UROBILINOGEN,URINE NEGATIVE mg/dL (<2.0)
--- NOTE | 2017-12-02 14:17 | ER Document Report ---
ED GI/ - General Chief Complaint: Vaginal Bleeding Stated Complaint: ABDOMINAL PAIN, VAGINAL BLEEDING Time Seen by Provider: 12/02/17 13:08 Notes: The patient is a 32-year-old female, (2 prior spontaneous miscarriages) approximately 11 weeks , presents with vaginal bleeding earlier today. The bleeding has stopped, but she is concerned about the fetus. She denies lightheadedness, dysuria, nausea, vomiting or abdominal pain. TRAVEL OUTSIDE OF THE [place] IN LAST 30 DAYS: No - Related Data Allergies/Adverse Reactions: No Known Allergies Allergy (Verified 10/19/17 12:23) Past Medical History - General Information source: Patient - Social History Smoking Status: Never Smoker Frequency of alcohol use: None Drug Abuse: None Family History: Reviewed & Not Pertinent Patient has suicidal ideation: No Patient has homicidal ideation: No - Past Medical History Cardiac Medical History: Denies: Hx Congestive Heart Failure, Hx Heart Attack, Hx Hypertension Pulmonary Medical History: Denies: Hx Asthma, Hx Bronchitis, Hx COPD, Hx Pneumonia, Hx Tuberculosis Neurological Medical History: Denies: Hx Seizures Renal/ Medical History: Denies: Hx End Stage Renal Disease, Hx Kidney Stones, Hx Peritoneal Dialysis GI Medical History: Reports: Hx Gastroesophageal Reflux Disease. Denies: Hx Cirrhosis, Hx Ulcer Musculoskeltal Medical History: Denies Hx Arthritis, Denies Hx Multiple Sclerosis Psychiatric Medical History: Denies: Hx Bipolar Disorder, Hx Depression, Hx Schizophrenia - Immunizations Hx Diphtheria, Pertussis, Tetanus Vaccination: Yes Review of Systems - Review of Systems Notes: REVIEW OF SYSTEMS: CONSTITUTIONAL: -fevers, -chills EENT: -eye pain, -difficulty swallowing, -nasal congestion CARDIOVASCULAR: -chest pain, -syncope. RESPIRATORY: -cough, -SOB GASTROINTESTINAL: -abdominal pain, -nausea, -vomiting, -diarrhea GENITOURINARY: -dysuria, -hematuria, +vaginal bleeding MUSCULOSKELETAL: -back pain, -neck pain SKIN: -rash or skin lesions. HEMATOLOGIC: -easy bruising or bleeding. LYMPHATIC: -swollen, enlarged glands. NEUROLOGICAL: -altered mental status or loss of consciousness, -headache, - neurologic symptoms PSYCHIATRIC: -anxiety, -depression. ALL OTHER SYSTEMS REVIEWED AND NEGATIVE. Physical Exam - Vital signs Vitals: Temp Pulse Resp BP Pulse Ox 98.4 F 86 18 143/92 H 100 12/02/17 13:03 12/02/17 13:03 12/02/17 13:03 12/02/17 13:03 12/02/17 13:03 - Notes Notes: PHYSICAL EXAMINATION: GENERAL: Well-appearing, well-nourished and in no acute distress. HEAD: Atraumatic, normocephalic. EYES: Pupils equal round and reactive to light, extraocular movements intact, sclera anicteric, conjunctiva are normal. ENT: nares patent, oropharynx clear without exudates. Moist mucous membranes. NECK: Normal range of motion, supple without lymphadenopathy LUNGS: Breath sounds clear to auscultation bilaterally and equal. No wheezes rales or rhonchi. HEART: Regular rate and rhythm without murmurs ABDOMEN: Soft, nontender, normoactive bowel sounds. No guarding, no rebound. No masses appreciated. PELVIC: Pt deferred. EXTREMITIES: Normal range of motion, no pitting or edema. No cyanosis. NEUROLOGICAL: Cranial nerves grossly intact. Normal speech, normal gait. Normal sensory and motor exams. PSYCH: Normal mood, normal affect. SKIN: Warm, Dry, normal turgor, no rashes or lesions noted. Course - Re-evaluation Re-evalutation: Patient with no active bleeding. She has a confirmed viable intrauterine fetus with a closed cervix. Her blood type is a positive. Patient also has a fibroid. Instructed her to follow-up with OB for further evaluation and treatment. - Vital Signs Vital signs: Temp Pulse Resp BP Pulse Ox 98.0 F 73 16 127/88 H 100 12/02/17 15:42 12/02/17 15:42 12/02/17 15:42 12/02/17 15:42 12/02/17 15:42 - Laboratory Result Diagrams: 12/02/17 13:49 12/02/17 13:49 Laboratory results interpreted by me: 12/02/17 12/02/17 12/02/17 13:49 13:49 13:49 WBC 11.4 H Seg Neutrophils % 78.6 H Absolute Neutrophils 9.0 H Beta HCG, Quant 236128.00 H Urine Protein 30 H Urine Blood LARGE H - Diagnostic Test Radiology reviewed: Image reviewed, Reports reviewed Radiology results interpreted by me: US OB: LIVING INTRAUTERINE . EGA 10 weeks 4 days, embryo cardiac activity 160 beats per minute. 3.5 cm posterior uterine body fibroid. Closed cervix. Discharge - Discharge Clinical Impression: Vaginal bleeding in patient at less than 20 weeks gestation Condition: Stable Disposition: HOME, SELF-CARE Additional Instructions: : You are . care is best started as early in as possible. If you're unsure about continuing this , you should discuss this with your physician or with aerial survey technician at [facility]. You should take only medications approved by your physician. Acetaminophen can safely be taken for minor pains. As a rule, medication for chronic conditions such as asthma or seizures can safely be continued. You should discuss with the physician every medicine you take. Any regular exercise program can be continued. Talk to your physician, however, before engaging in competitive or demanding sports. Alcohol, smoking, and "street drugs" are dangerous to your baby. Cocaine is especially dangerous. Don't use any illicit drugs! BLEEDING DURING EARLY : You have been evaluated for passing blood while . While we take this symptom very seriously, most women with your degree of bleeding will go on to have a perfectly normal baby. At this time, there is no indication that a miscarriage will occur. (A miscarriage occurs when the fetus is abnormal. There is no medicine or treatment to prevent it.) A more serious cause of bleeding is tubal (or ectopic) . An ultrasound usually can show whether the is in the uterus or in the tube. Sometimes in early , no fetus is seen. In this case, careful follow-up, including repeat blood tests and repeat ultrasound, is necessary. Do not douche or have sex for at least a week, or until OK'd by the doctor. Don't use tampons. Call the doctor or return for re-examination if there is an increase in bleeding or cramping, extreme weakness, fainting, new abdominal pain, fever, or passage of tissue. THREATENED MISCARRIAGE: You have been evaluated for a possible miscarriage. At this time, there is no indication that a miscarriage will occur. Most women with your symptoms will go on to have a perfectly normal baby. However, careful observation will be necessary. A miscarriage occurs when the fetus is abnormal. There is no medicine or treatment for it. You should rest in bed until the symptoms have resolved. Do not douche or have sex for at least a week, or until OK'd by the doctor. Call the doctor or return for re-examination if there is an increase in bleeding or cramping, or passage of tissue. FOLLOW-UP CARE: If you have been referred to a physician for follow-up care, call the physician s office for an appointment as you were instructed or within the next two days. If you experience worsening or a significant change in your symptoms (very heavy bleeding with large clots of blood, passage of tissue, more severe abdominal / pelvic pain or cramping, feeling faint or severe weakness, fever, etc.), notify the physician immediately or return to the Emergency Department at any time for re-evaluation. OBSTETRIC-GYNECOLOGIC (OB-RADIATOR SPECIALIST) PHYSICIANS IN [place]: The [facility] [address], [place] [phone] [facility] [address], [place] [phone] For active duty and dependents diagnosed with a threatened or miscarriage, you should follow up in the following manner: Standard patients who have a local civilian provider should follow up with that provider. Patients of the Family Practice Clinic should call your Team Nurse at 8: 00 am the following morning for further instructions. If you are neither a Standard patient nor a patient of the [facility], you should follow up at the [facility] ([facility]) . Patients already enrolled in the [facility] OB Clinic, Prime patients not assigned to the [facility], and Active Duty patients not assigned to [facility] should report to the [facility] Lab at 8:00 am the next morning that the [facility] OB Clinic is open and then you will be seen in the OB Clinic at 11:00 am. Forms: Elevated Blood Pressure Referrals: BINDU BORGES MD [ACTIVE STAFF] - Follow up as needed
[2017-12-02 14:23] LABS: ABSOLUTE EOSINOPHILS # (AUTO) 0.2 10^3/uL (0.0-0.6); ABSOLUTE LYMPHOCYTES (AUTO) 1.7 10^3/uL (0.5-4.7); ABSOLUTE MONOCYTES (AUTO) 0.5 10^3/uL (0.1-1.4); BASOPHILS % (AUTO) 0.3 % (0-2); EOSINOPHILS % (AUTO) 1.4 % (0-6); HEMATOCRIT 40.1 % (36.0-47.0); HEMOGLOBIN 13.8 g/dL (12.0-15.5); MEAN CORPUSCULAR HGB CONC 34.5 g/dL (32.0-36.0); MEAN CORPUSCULAR VOLUME 84 fl (80-97); MONOCYTES % (AUTO) 4.7 % (3-13); PLATELET COUNT 364 10^3/uL (150-450); RED BLOOD COUNT 4.78 10^6/uL (3.72-5.28); RED CELL DISTRIBUTION WIDTH 13.3 % (11.5-14.0); SEGMENTED NEUTROPHILS % (AUTO) 78.6 % (42-78); TOTAL CELLS COUNTED % (AUTO) 100 %; WHITE BLOOD COUNT 11.4 10^3/uL (4.0-10.5)
--- NOTE | 2017-12-02 14:43 | RADIOLOGY REPORT (SQ) ---
EXAM DESCRIPTION: U/S OB TRANSVAG W/DOPPLER COMPLETED DATE/TIME: 12/02/2017 2:31 pm REASON FOR STUDY: ; bleeding COMPARISON: OB ultrasound 10/13/2016, 10/19/2017 TECHNIQUE: Endovaginal static and realtime grayscale images acquired of the pelvis. Additional selec tanna spectral and color Doppler images recorded. All images stored on PACs. bHCG: Not available LIMITATIONS: None. FINDINGS: FETUS: Living intrauterine . EGA: 10 weeks 4 days SUZETTE: 06/26/2018 FHR: 168 beats per minute. SUBCHORIONIC BLEED: No SIZE OF BLEED: Not applicable. UTERUS: Uterus is 10 x 9 x 6 cm in size. Along the posterior uterine body, a probable 3.5 cm fibroid is present. CERVICAL LENGTH: Closed, 3.1 cm multiple nabothian cysts in the cervix RIGHT ADNEXA: Not visualized due to adnexal bowel gas LEFT ADNEXA: Normal ovary with normal vascular flow. Left ovary is 3.8 x 3 x 2.7 cm in size. No adnexal free fluid. No adnexal masses. FREE FLUID: None. OTHER: No other significant finding. IMPRESSION: LIVING INTRAUTERINE . EGA 10 weeks 4 days, embryo cardiac activity 160 beats per minute. 3.5 cm posterior uterine body fibroid Trimester of : First - 0 to 13 weeks. TECHNICAL DOCUMENTATION: JOB ID: [id number] [employer]- All Rights Reserved Reading location - IP/workstation name: [email or web address]
[2017-12-02 14:44] LABS: ALANINE AMINOTRANSFERASE 46 U/L (9-52); ALBUMIN 4.4 g/dL (3.5-5.0); ALKALINE PHOSPHATASE 66 U/L (38-126); ANION GAP 12 (5-19); ASPARTATE AMINO TRANSFERASE 21 U/L (14-36); BILIRUBIN,DIRECT 0.1 mg/dL (0.0-0.4); BILIRUBIN,TOTAL 0.5 mg/dL (0.2-1.3); BLOOD UREA NITROGEN 10 mg/dL (7-20); CARBON DIOXIDE 23 mmol/L (22-30); CHLORIDE 104 mmol/L (98-107); GLUCOSE 92 mg/dL (75-110); POTASSIUM 4.6 mmol/L (3.6-5.0); SODIUM 139.4 mmol/L (137-145); TOTAL PROTEIN 7.3 g/dL (6.3-8.2)
[2017-12-02 15:44] VITALS: BP 127/88
== END 2017-12-02 15:42 | disposition home or self-care (01) ==
LOC: ER 12:55
DX: O20.9 Hemorrhage in early pregnancy, unspecified (principal); O34.10 Maternal care for benign tumor of corpus uteri, unspecified trimester; Z3A.00 Weeks of gestation of pregnancy not specified; Z87.59 Personal history of other complications of pregnancy, childbirth and the puerperium
CPT/HCPCS: 36415; 76817; 80053; 81001; 84702; 85025; 93976; 99284

== ENCOUNTER → 2018-03-12 | Outpatient (CLI) | payer SELFPAY ==
--- NOTE | 2018-03-12 16:17 | RADIOLOGY REPORT (SQ) ---
EXAM DESCRIPTION: U/S OB 14+ TRNABD 1GES W/O DOP COMPLETED DATE/TIME: 03/12/2018 2:41 pm REASON FOR STUDY: ENCOUNTER FOR SUPERVISION OF OTHER NORMAL Z34.82 ENCOUNTER FOR SUPRVSN OF NORMAL , SECOND TRI COMPARISON: 11/17/2017 TECHNIQUE: Static and Dynamic grayscale imaging performed of gravid uterus using transabdominal appr oach. Additional selected color Doppler and spectral images recorded. All stored on PACS. LIMITATIONS: None. FINDINGS: EGA: 25 weeks 2 days SUZETTE: 06/21/2018 EFW: 871 +/-129 grams PERCENTILE: 59 LVP: 6.4 cm. PLACENTA: Anterior GRADE: I PRESENTATION: Cephalic. ANATOMY: HEART RATE: heart rate was not documented, but heart motion is seen on a cine clip. FOUR CHAMBER HEART: Visualized. THREE VESSEL CORD: Yes. CORD INSERTION: Visualized. KIDNEYS AND BLADDER: Visualized. Appear normal. STOMACH: Visualized. Appears normal. SPINE: Normal as visualized. BRAIN AND LATERAL VENTRICLES: Brain generally appears normal. The lateral ventricles not well seen. OTHER: No other significant finding. MATERNAL ADNEXA: Maternal ovaries not visualized. CERVICAL LENGTH: 3.2 cm. Closed. OTHER: No other significant finding. IMPRESSION: LIVING INTRAUTERINE . ESTIMATED GESTATIONAL AGE 25 weeks 2 days NO VISUALIZED ANOMALIES. Trimester of : Second trimester - 13 weeks 1 day to 27 weeks 6 days. TECHNICAL DOCUMENTATION: JOB ID: [id number] [employer]- All Rights Reserved Reading location - IP/workstation name: [email or web address]
== END ==
LOC: RAD 12:51
PROVIDERS: ATTEND Nurse Practitioner Women's Health
DX: Z34.82 Encounter for supervision of other normal pregnancy, second trimester (principal)
CPT/HCPCS: 76805

== ENCOUNTER 2018-06-18 22:27 | Outpatient (CLI) | payer SELFPAY ==
[2018-06-18 22:53] LABS: APPEARANCE,URINE CLOUDY; BILIRUBIN,URINE NEGATIVE (NEGATIVE); COLOR,URINE YELLOW; GLUCOSE, URINE NEGATIVE (NEGATIVE); KETONES,URINE NEGATIVE (NEGATIVE); LEUKOCYTE ESTERASE,URINE MODERATE (NEGATIVE); NITRITE,URINE NEGATIVE (NEGATIVE); PROTEIN,URINE NEGATIVE (NEGATIVE); URINE SPECIFIC GRAVITY 1.003; UROBILINOGEN,URINE NEGATIVE mg/dL (<2.0)
[2018-06-18 23:15] LABS: URINE AMPHETAMINES SCREEN NEGATIVE; URINE BARBITURATES SCREEN NEGATIVE; URINE BENZODIAZEPINES SCREEN NEGATIVE; URINE COCAINE SCREEN NEGATIVE; URINE MARIJUANA (THC) SCREEN NEGATIVE; URINE METHADONE SCREEN NEGATIVE; URINE PHENCYCLIDINE SCREEN NEGATIVE
--- NOTE | 2018-06-19 | Non Stress Test Report ---
Non Stress Test Datetime Report Generated by CPN: 06/19/2018 00:00 DEMOGRAPHIC EGA NST: 39.0 INDICATION Indication for Study: Ordered by Provider Indication for Study (NST) Other: LC VITAL SIGNS Temperature - NST: 98.0 RESP - NST: 18 URINE RESULTS Urine Protein, NST: Negative Urine Ketones - NST: Negative Urine Glucose - NST: Negative Urine Blood - NST: Negative MONITORING Monitor Explained: Monitor Explained; Test Explained; Patient Verbalized Understanding Time on Monitor: 06/18/2018 22:40 Time off Monitor: 06/18/2018 23:47 NST Duration: 67 NST INTERVENTIONS Physician Notified NST: Younger BABY A: [id number] BABY A Movement : Present Contraction Frequency : 4-8 FHR Baseline : 130 Accelerations : Prolonged Decelerations : None Variability : Moderate 6-25bpm NST Review: Meets Criteria for Reactive NST NST Review and Verified By : S. Lattibeaudeir, RNC NST Results: Reactive NST REPORT Report Trigger: Send Report
[2018-06-19] MEDS ORDERED: NALBUPHINE HCL INJ 10 MG/1 ML AMPULE ONE (00:29)
[2018-06-19] MEDS ORDERED: NALBUPHINE HCL INJ 10 MG/1 ML AMPULE SUBCUT ONE (00:45)
== END 2018-06-19 02:01 | disposition home or self-care (01) ==
LOC: LC 22:27
PROVIDERS: ATTEND Obstetrics & Gynecology
PROC: 4A1HXCZ Monitoring of Products of Conception, Cardiac Rate, External Approach (ICD-10-PCS; principal; 2018-06-18)
DX: O36.8330 Maternal care for abnormalities of the fetal heart rate or rhythm, third trimester, not applicable or unspecified (principal); O09.523 Supervision of elderly multigravida, third trimester; O47.1 False labor at or after 37 completed weeks of gestation; Z3A.39 39 weeks gestation of pregnancy
CPT/HCPCS: 59025; 81005; 80307; J2300

== ENCOUNTER 2018-06-19 08:58 | Inpatient (IN) | payer SELFPAY ==
[2018-06-19 09:49] LABS: APPEARANCE,URINE CLEAR; BILIRUBIN,URINE NEGATIVE (NEGATIVE); COLOR,URINE YELLOW; GLUCOSE, URINE NEGATIVE (NEGATIVE); KETONES,URINE NEGATIVE (NEGATIVE); LEUKOCYTE ESTERASE,URINE NEGATIVE (NEGATIVE); NITRITE,URINE NEGATIVE (NEGATIVE); PROTEIN,URINE NEGATIVE (NEGATIVE); URINE SPECIFIC GRAVITY 1.005; UROBILINOGEN,URINE NEGATIVE mg/dL (<2.0)
[2018-06-19 10:03] LABS: URINE AMPHETAMINES SCREEN NEGATIVE; URINE BARBITURATES SCREEN NEGATIVE; URINE BENZODIAZEPINES SCREEN NEGATIVE; URINE COCAINE SCREEN NEGATIVE; URINE MARIJUANA (THC) SCREEN NEGATIVE; URINE METHADONE SCREEN NEGATIVE; URINE PHENCYCLIDINE SCREEN NEGATIVE
[2018-06-19 10:08] LABS: URINE CREATININE 41.1 mg/dL (16-327); URINE PROTEIN 42.8 mg/dL (<12)
[2018-06-19 10:22] LABS: ABSOLUTE EOSINOPHILS # (AUTO) 0.1 10^3/uL (0.0-0.6); ABSOLUTE LYMPHOCYTES (AUTO) 1.4 10^3/uL (0.5-4.7); ABSOLUTE MONOCYTES (AUTO) 0.6 10^3/uL (0.1-1.4); ABSOLUTE NEUT (AUTO) 8.7 10^3/uL (1.7-8.2); BASOPHILS % (AUTO) 0.4 % (0-2); EOSINOPHILS % (AUTO) 1.3 % (0-6); HEMATOCRIT 30.4 % (36.0-47.0); HEMOGLOBIN 10.4 g/dL (12.0-15.5); LYMPHOCYTES % (AUTO) 12.6 % (13-45); MEAN CORPUSCULAR HEMOGLOBIN 28.8 pg (27.0-33.4); MEAN CORPUSCULAR HGB CONC 34.3 g/dL (32.0-36.0); MEAN CORPUSCULAR VOLUME 84 fl (80-97); MONOCYTES % (AUTO) 5.4 % (3-13); PLATELET COUNT 325 10^3/uL (150-450); RED BLOOD COUNT 3.61 10^6/uL (3.72-5.28); RED CELL DISTRIBUTION WIDTH 14.9 % (11.5-14.0); SEGMENTED NEUTROPHILS % (AUTO) 80.3 % (42-78); TOTAL CELLS COUNTED % (AUTO) 100 %; WHITE BLOOD COUNT 10.9 10^3/uL (4.0-10.5)
[2018-06-19 10:40] LABS: ALANINE AMINOTRANSFERASE 39 U/L (9-52); ALKALINE PHOSPHATASE 149 U/L (38-126); ANION GAP 8 (5-19); ASPARTATE AMINO TRANSFERASE 23 U/L (14-36); BILIRUBIN,DIRECT 0.3 mg/dL (0.0-0.4); BILIRUBIN,TOTAL 0.7 mg/dL (0.2-1.3); BLOOD UREA NITROGEN 13 mg/dL (7-20); CALCIUM 9.1 mg/dL (8.4-10.2); CARBON DIOXIDE 20 mmol/L (22-30); CHLORIDE 110 mmol/L (98-107); GLUCOSE 85 mg/dL (75-110); POTASSIUM 4.7 mmol/L (3.6-5.0); SODIUM 137.9 mmol/L (137-145); TOTAL PROTEIN 6.1 g/dL (6.3-8.2); URIC ACID 7.7 mg/dL (2.5-7.0)
[2018-06-19] MEDS ORDERED: OXYTOCIN/NORMAL SALINE 20 UNIT/1,000 ML RTUINJ IV PRN ×2 (11:04→22:09)
[2018-06-19] MEDS ORDERED: RINGERS SOLUTION,LACTATED 1,000 ML IV PRN (11:05)
[2018-06-19] MEDS ORDERED: RINGERS SOLUTION,LACTATED 300 ML IV ONE (11:05)
[2018-06-19] MEDS ORDERED: OXYTOCIN/NORMAL SALINE 20 UNIT/1,000 ML RTUINJ ONE (14:34)
[2018-06-19] MEDS ORDERED: PENICILLIN G-K 5 MILLION UNIT VIAL ONE ×2 (14:35→19:00)
[2018-06-19] MEDS ORDERED: PENICILLIN G POTASSIUM 5,000,000 UNIT in DEXTROSE 5%-WATER 100 ML IV ONE (15:06)
--- NOTE | 2018-06-19 15:06 | Admission Physical ---
Datetime Report Generated by CPN: 06/19/2018 15:06 CURRENT ADMISSION Chief Complaint: Sent from OB Office for Evaluation and Treatment - Please Specify Chief Complaint Other: preeclampsia Indication for Induction- Other: preeclampsia at term Admit Impression : Term, Intrauterine Admit Plan: Admit to Unit; Initiate Labor Induction Protocol ALLERGIES Medication Allergies: No Medication Allergies: No Known Allergies (06/19/2018) Latex: No Latex Allergies Food Allergies: none Environmental Allergies: none OBSTETRICAL HISTORY EDC: 06/27/2018 00:00 : 3 Para: 0 Term: 0 : 0 SAB: 1 IAB: 0 Ectopic: 1 Livin Cesareans: 0 VBACs: 0 Multiple Births: 0 Gestational Diabetes: No Rh Sensitization: No Incompetent Cervix: No OTTO: No Infertility: No ART Treatment: No Uterine Anomaly: No IUGR: No Hx Previous C/S: No Macrosomia: No Hx Loss/Stillborn: No PIH: No Hx : No Placenta Previa/Abruption: No Depression/PP Depression: No PTL/PROM: No Post Hemorrhage: No Current Procedures: Ultrasound Obstetrical History Comments: G1-SAB G2-Ectopic G3-Current , AMA, FAILED 1 HR PASSED 3 HR, 3.5 CM FIBROID SEE RECORDS Alcohol: No Marijuana : No Cocaine: No Other Illicit Drugs: No Cigarettes: Never Smoker. [id number] MEDICAL HISTORY Diabetes: No Blood Transfusion: No Pulmonary Disease (Asthma, TB): No Breast Disease: No Hypertension: No Systems Checkout Mechanic Surgery: No Heart Disease: No Hosp/Surgery: No Autoimmune Disorder: No Anesthetic Complications: No Kidney Disease: No Abnormal Pap Smear: Yes Neuro/Epilepsy: No Psychiatric Disorders: No Other Medical Diseases: No Hepatitis/Liver Disease: No Significant Family History: No Varicosities/Phlebitis: No Trauma/Violence : No Thyroid Dysfunction: No Medical History Comments: uterine fibroid (Annotations: Data stored by [facility] on behalf of user) INFECTIOUS HISTORY Gonorrhea: No Genital Herpes: No Chlamydia: No Tuberculosis: No Syphilis: No Hepatitis: No HIV/AIDS Exposure: No Rash or Viral Illness: No HPV: Yes Infectious History Comments: HPV colposcopy PHYSICAL EXAM General: Normal HEENT: Normal Neurologic: Deferred Thyroid: Normal Heart: Normal Lungs: Normal Breast: Deferred Back: Normal Abdomen: Normal Genitourinary Exam: Normal Extremities: Normal DTRs: Normal Pelvic Type: Adequate Vital Signs: Reviewed Details Vital Signs: mild range elevated BPs VAGINAL EXAM Dilatation: 4 Effacement: 75 Station: -2 Contraction Comments: rare MEMBRANES Membranes: Bulging FETUS A EGA: 38.6 Monitoring: External US FHR- Baseline: 120 Variability: Moderate 6-25bpm Accelerations: 15X15 Decelerations: None FHR Category: Category I Estimated Weight (gm): 3300 Presentation: Vertex Admit Comment: at 38+6 dated by LMP c/w first trimester sono, seen at health dept, presented for transfer NOB at [facility] today with elevated BPs. pr.cr at [facility] 1.0 and elevated uric acid, admitted for IOL d/t pre-e. AMA, GBS unknown, failed 1hr gtt then passed 3hr test. P: Penicillin for GBS prophylaxis, pitocin IOL, anticipate PLANS FOR LABOR AND DELIVERY Labor and Delivery: None Pain Management: Natural Feeding Preference: Breast Benefit of Breast Feed Discussed: Yes Circumcision: Yes INFORMED CONSENT Assignment: Verónica Cadet MD Signature: with User ID: [email or web address] : with User ID: [email or web address]
[2018-06-19] MEDS ORDERED: PENICILLIN G POTASSIUM 2,500,000 UNIT in DEXTROSE 5%-WATER 50 ML IV SCH (19:07)
[2018-06-19] MEDS ORDERED: HYDRALAZINE HCL INJ/PF 20 MG/1 ML SDV ONE (20:26)
[2018-06-19] MEDS ORDERED: HYDRALAZINE HCL INJ/PF 20 MG/1 ML SDV IV ONE (20:32)
[2018-06-19] MEDS ORDERED: MISOPROSTOL 0.2 MG TABLET ONE (20:35)
[2018-06-19] MEDS ORDERED: LIDOCAINE 1% INJ-PF (10 MG/ML) 30 ML SDV ONE (20:35)
[2018-06-19] MEDS ORDERED: FENTANYL CITRATE INJ/PF 100 MCG/2 ML AMPUL ONE (21:31)
[2018-06-19] MEDS ORDERED: CARBOPROST TROMETHAMINE INJ 250 MCG/1 ML AMPULE ONE (21:47)
[2018-06-19] MEDS ORDERED: CEFAZOLIN 2 GM/D5W RTU 2 GM/50 ML RTUPB IV ONE (21:55)
[2018-06-19] MEDS ORDERED: LOPERAMIDE HCL 2 MG CAPSULE ONE ×2 (21:55→23:11)
[2018-06-19] MEDS ORDERED: DIBUCAINE 1% OINTMENT 28 GM TP PRN (22:09)
[2018-06-19] MEDS ORDERED: ACETAMINOPHEN WITH CODEINE #3 TABLET PO PRN ×2 (22:09)
[2018-06-19] MEDS ORDERED: MAGNESIUM HYDROXIDE SUSP 30 ML UDCUP PO PRN (22:09)
[2018-06-19] MEDS ORDERED: DIPH/PERTUSS(ACELL)/TETANUS VAC/PF 0.5 ML SYR (>=10YO) IM PRN (22:09)
[2018-06-19] MEDS ORDERED: ZOLPIDEM TARTRATE 5 MG TABLET PO PRN (22:09)
[2018-06-19] MEDS ORDERED: CARBOPROST TROMETHAMINE INJ 250 MCG/1 ML AMPULE IM PRN (22:09)
[2018-06-19] MEDS ORDERED: PSEUDOEPHEDRINE HCL 30 MG TABLET PO PRN (22:09)
[2018-06-19] MEDS ORDERED: NA PHOS,M-B/NA PHOS,DI-BA (ADULT) 133 ML ENEMA PR PRN (22:09)
[2018-06-19] MEDS ORDERED: PROMETHAZINE HCL INJ 25 MG/1 ML VIAL IV PRN (22:09)
[2018-06-19] MEDS ORDERED: PROMETHAZINE HCL 25 MG TABLET PO PRN (22:09)
[2018-06-19] MEDS ORDERED: MEASLES,MUMPS&RUBELLA VACC/PF 0.5 ML VIAL SUBCUT PRN (22:09)
[2018-06-19] MEDS ORDERED: ACETAMINOPHEN 325 MG TABLET PO PRN (22:09)
[2018-06-19] MEDS ORDERED: DIPHENHYDRAMINE HCL 25 MG CAPSULE PO PRN (22:09)
[2018-06-19] MEDS ORDERED: GLYCERIN/WITCH HAZEL LEAF 1 EACH MED..PAD TP PRN (22:09)
[2018-06-19] MEDS ORDERED: BENZOCAINE/MENTHOL AEROSOL SPRAY 56 ML TOP PRN (22:09)
[2018-06-19] MEDS ORDERED: PROMETHAZINE HCL 25 MG SUPP.RECT PR PRN (22:09)
[2018-06-19] MEDS ORDERED: IBUPROFEN 800 MG TABLET PO ONE (22:30)
[2018-06-19] MEDS ORDERED: FAMOTIDINE 20 MG TABLET PO ONE (22:30)
[2018-06-19] MEDS ORDERED: LOPERAMIDE HCL 2 MG CAPSULE PO ONE (22:45)
[2018-06-19] MEDS ORDERED: MISOPROSTOL 0.1 MG TABLET PR ONE (22:45)
[2018-06-19 22:47] LABS: HEMATOCRIT 30.4 % (36.0-47.0); HEMOGLOBIN 10.3 g/dL (12.0-15.5); MEAN CORPUSCULAR HEMOGLOBIN 28.2 pg (27.0-33.4); MEAN CORPUSCULAR HGB CONC 33.8 g/dL (32.0-36.0); MEAN CORPUSCULAR VOLUME 83 fl (80-97); PLATELET COUNT 327 10^3/uL (150-450); RED BLOOD COUNT 3.64 10^6/uL (3.72-5.28); RED CELL DISTRIBUTION WIDTH 15.1 % (11.5-14.0)
[2018-06-19 23:05] LABS: ABSOLUTE LYMPHOCYTES# (MANUAL) 0.5 10^3/uL (0.5-4.7); ABSOLUTE NEUTROPHILS# (MANUAL) 24.5 10^3/uL (1.7-8.2); BAND NEUTROPHILS % (MANUAL) 1 % (3-5); BASOPHILS % (MANUAL) 0 % (0-2); EOSINOPHILS % (MANUAL) 0 % (0-6); LYMPHOCYTES % (MANUAL) 2 % (13-45); MONOCYTES % (MANUAL) 0 % (3-13); SEGMENTED NEUTROPHILS % (MAN) 97 % (42-78); TOTAL CELLS COUNTED 100
[2018-06-19 23:09] LABS: PLATELET COMMENT ADEQUATE; PLATELET LARGE PRESENT; TOXIC VACUOLATION PRESENT
[2018-06-19] MEDS ORDERED: IBUPROFEN 800 MG TABLET ONE (23:11)
[2018-06-20] MEDS ORDERED: CEFAZOLIN 2 GM/D5W RTU 2 GM/50 ML RTUPB IV SCH
--- NOTE | 2018-06-20 01:15 | Delivery Summary ---
Del Sum A-C Datetime Report Generated by CPN: 06/20/2018 01:15 DELIVERY PERSONNEL DELIVERY PERSONNEL: [id number] Delivery Doctor:: Verónica Cadet MD Anesthesiologist:: Jignesh Altman MD Labor and Delivery Nurse:: Rosemary Zavala RNbundle helper Nurse:: Shefali Maynard RN Match Marker/BOAT CREW DECK HAND: Yvonne Mora, BAKERY CHEF MATERNAL INFORMATION Delivery Anesthesia: Local Medications After Delivery: Pitocin Drip 20 Units/1000ml NSS; Cytotec 1000mcg Per Rectum/Vagina Estimated Blood Loss (ml): 800 Maternal Complications: Hemorrhage Other Maternal Complications: hemorrhage Provider Comments: Called for delivery from other labor room. Upon arrival head was delivering. I was present for delivery. No shoulder dystocia. no nuchal cord. Cord doubly clamped and cut and to maternal abdomen. Placenta delivered intact spontaneously. Manual exploration of uterus performed due to significant bleeding. Bladder drained with approx 450ml dained. Lower uterine segment atony with large clots noted which were evacuated. 1000mcg Cytotec [place] placed and pitocin IV. Lacerations repaired with good hemostasis of vaginal and perineal lacerations. Poor response of lower uterine segment tone to medications. Hemabate injected into the lower segment. Improved uterine tone. WIll place wood catheter to gravity. 2 grams ANcef given due to uterine exploration. Mother and baby stable upon provider leaving the room. LABOR SUMMARY EDC: 06/27/2018 00:00 No. Babies in Womb: 1 Attempted: Yes Labor Anesthesia: None LABOR INFORMATION Reason for Induction: Pre-Eclampsia Onset of Labor: 06/19/2018 18:31 Complete Dilatation: 06/19/2018 21:01 Other Ripening Agents: pitocin Oxytocin: Induction Group B Beta Strep: Unknown Antibiotics # of Doses: 2 Antibiotics Time of Last Dose: 1901 Name of Antibiotic Given: PCN Steroids Given: None Reason Steroids Not Administered: Not Applicable MEMBRANES Membranes Rupture Method: Artificial Rupture of Membranes: 06/19/2018 18:31 Length of Rupture (hr): 2.80 Amniotic Fluid Color: Clear Amniotic Fluid Amount: Small Amniotic Fluid Odor: Normal STAGES OF LABOR Stage 1 hr: 2 Stage 1 min: 30 Stage 2 hr: 0 Stage 2 min: 18 Stage 3 hr: 1 Stage 3 min: 4 Total Time in Labor hr: 3 Total Time in Labor min: 52 VAGINAL DELIVERY Episiotomy: None Laceration #1: Perineal Laceration Extension #1: Second Degree Laceration #2: Vaginal Laceration Extension #2: N/A Laceration Repair: Yes Laceration Repair Note: 2nd degree perineal laceration repaired in usual fashion and right vaginal sidewall laceration repaired in usual fashion. Sponge Count Correct: N/A Sharps Count Correct: Yes CSECTION DELIVERY Primary Indication: N/A Secondary Indication: N/A CSection Incidence: N/A Labor: N/A Elective: N/A CSection Incision: N/A BABY A INFORMATION Infant Delivery Date/Time: 06/19/2018 21:19 Method of Delivery: Vaginal Born in Route : No : N/A Forceps: N/A Vacuum Extraction: N/A Shoulder Dystocia : No PRESENTATION/POSITION BABY A Presentation: Cephalic Cephalic Presentation: Vertex Vertex Position: Right Occipital Anterior Breech Presentation: N/A PLACENTA INFORMATION BABY A Placenta Delivery Time : 06/19/2018 22:23 Placenta Method of Delivery: Manual Removal Placenta Status: Delivered SCORES BABY A Heart Rate 1 min: >100 bpm Resp Effort 1 min: Good Cry Reflex Irritability 1 min: Cough or Sneeze or Pulls Away Muscle Tone 1 min: Active Motion Color 1 min: Blue/Pale Resuscitation Effort 1 min: Tactile Stimulation SCORE 1 MIN: 8 Heart Rate 5 min: >100 bpm Resp Effort 5 min: Good Cry Reflex Irritability 5 min: Cough or Sneeze or Pulls Away Muscle Tone 5 min: Active Motion Color 5 min: Body [place], Extremities Blue Resuscitation Effort 5 min: Tactile Stimulation SCORE 5 MIN: 9 INFANT INFORMATION BABY A Gestational Age at Delivery: 38.6 Gestational Status: Early Term- 37- 38.6 Weeks Outcome : Liveborn Infant Condition : Stable Sex: Male IDENTIFICATION BABY A Infant Verification Date/Time: 06/19/2018 22:15 ID Band Number: [id number] Mother's Name Verified: Yes Infant RN Verifying : Gael ZAVALAENRIQUE Additional Verifying Personnel: Nadeen España RN WEIGHT/LENGTH BABY A Birthweight (gm): 3230 Infant Weight (lb): 7 Weight (oz): 2 Length (in): 19.75 Infant Length (cm): 50.17 CORD INFORMATION BABY A No. Cord Vessels: 3 Nuchal Cord : N/A Cord Blood Taken: Yes-For Eval (Mom's Blood Type - or O+) Infant Suction: Mouth; Nose ASSESSMENT BABY A Complications: None Physical Findings at Delivery: Molding of the Head Infant Respirations: Appears Normal Skin to Skin: Yes Customer Engagement Manager/ALS Called : No Care By: ENRIQUE Ritchie Transferred To: Remains with Mother BABY B INFORMATION : N/A SIGNATURES Signature: with User ID: Jose : Heather was personally available for consultation and serving as supervising physician for the MLP.
[2018-06-20] MEDS: IBUPROFEN 800 MG TABLET PO SCH ×3 (06:05→22:14)
[2018-06-20 07:29] LABS: HEMATOCRIT 24.3 % (36.0-47.0); HEMOGLOBIN 8.4 g/dL (12.0-15.5); MEAN CORPUSCULAR HEMOGLOBIN 28.5 pg (27.0-33.4); MEAN CORPUSCULAR HGB CONC 34.4 g/dL (32.0-36.0); MEAN CORPUSCULAR VOLUME 83 fl (80-97); PLATELET COUNT 277 10^3/uL (150-450); RED BLOOD COUNT 2.93 10^6/uL (3.72-5.28); RED CELL DISTRIBUTION WIDTH 15.1 % (11.5-14.0); WHITE BLOOD COUNT 19.6 10^3/uL (4.0-10.5)
[2018-06-20 07:50] LABS: ALANINE AMINOTRANSFERASE 35 U/L (9-52); ALBUMIN 2.4 g/dL (3.5-5.0); ALKALINE PHOSPHATASE 119 U/L (38-126); ANION GAP 7 (5-19); ASPARTATE AMINO TRANSFERASE 29 U/L (14-36); BILIRUBIN,DIRECT 0.3 mg/dL (0.0-0.4); BILIRUBIN,TOTAL 0.8 mg/dL (0.2-1.3); BLOOD UREA NITROGEN 12 mg/dL (7-20); CALCIUM 8.6 mg/dL (8.4-10.2); CARBON DIOXIDE 20 mmol/L (22-30); CHLORIDE 109 mmol/L (98-107); GLUCOSE 92 mg/dL (75-110); POTASSIUM 4.5 mmol/L (3.6-5.0); SODIUM 135.5 mmol/L (137-145); TOTAL PROTEIN 5.1 g/dL (6.3-8.2); URIC ACID 7.8 mg/dL (2.5-7.0)
--- NOTE | 2018-06-20 09:18 | PDOC PROGRESS REPORT ---
Subjective-OB Progress Note for:: 06/20/18 Subjective: Doing well, no c/o, ambulating, Physical Exam (OB) Vital Signs: Temp Pulse Resp BP Pulse Ox 99.1 F 102 H 20 126/72 H 98 06/20/18 07:28 06/20/18 07:28 06/20/18 07:28 06/20/18 07:28 06/20/18 07:28 Intake & Output 06/19/18 06/20/18 06/21/18 06:59 06:59 06:59 Output Total 900 Balance -900 Weight 84.6 kg - PIH/Pre-Eclampsia DTR's: 2 + Clonus: Negative Headache: Absent Epigastric Pain: No Visual Changes: No - Lochia Lochia Amount: Small 10-25 ml Lochia Color: Rubra/Red - Abdomen Description: Soft, Round Hernia Present: No Fundal Description: Firm, Midline Fundal Height: u/u - u/2 Objective-Diagnostic Laboratory: 06/20/18 06:53 06/20/18 06:53 06/19/18 06/19/18 06/19/18 09:14 10:05 10:05 WBC 10.9 H RBC 3.61 L Hgb 10.4 L Hct 30.4 L MCV 84 MCH 28.8 MCHC 34.3 RDW 14.9 H Plt Count 325 Seg Neutrophils % 80.3 H Lymphocytes % 12.6 L Monocytes % 5.4 Eosinophils % 1.3 Basophils % 0.4 Absolute Neutrophils 8.7 H Absolute Lymphocytes 1.4 Absolute Monocytes 0.6 Absolute Eosinophils 0.1 Absolute Basophils 0.0 Sodium 137.9 Potassium 4.7 Chloride 110 H Carbon Dioxide 20 L Anion Gap 8 BUN 13 Creatinine 0.80 Est GFR ( Amer) > 60 Est GFR (Non-Af Amer) > 60 Glucose 85 Uric Acid 7.7 H Calcium 9.1 Total Bilirubin 0.7 AST 23 ALT 39 Alkaline Phosphatase 149 H Total Protein 6.1 L Albumin 3.0 L Urine Color YELLOW Urine Appearance CLEAR Urine pH 7.0 Ur Specific [place] 1.005 Urine Protein NEGATIVE Urine Glucose (UA) NEGATIVE Urine Ketones NEGATIVE Urine Blood NEGATIVE Urine Nitrite NEGATIVE Ur Leukocyte Esterase NEGATIVE Urine WBC (Auto) 2 Urine RBC (Auto) 0 Blood Type Antibody Screen 06/19/18 06/19/18 06/20/18 10:05 22:30 06:53 WBC 25.0 H D RBC 3.64 L Hgb 10.3 L Hct 30.4 L MCV 83 MCH 28.2 MCHC 33.8 RDW 15.1 H Plt Count 327 Seg Neutrophils % Not Reportable Lymphocytes % Not Reportable Monocytes % Not Reportable Eosinophils % Not Reportable Basophils % Not Reportable Absolute Neutrophils Not Reportable Absolute Lymphocytes Not Reportable Absolute Monocytes Not Reportable Absolute Eosinophils Not Reportable Absolute Basophils Not Reportable Sodium 135.5 L Potassium 4.5 Chloride 109 H Carbon Dioxide 20 L Anion Gap 7 BUN 12 Creatinine 0.79 Est GFR ( Amer) > 60 Est GFR (Non-Af Amer) > 60 Glucose 92 Uric Acid 7.8 H Calcium 8.6 Total Bilirubin 0.8 AST 29 ALT 35 Alkaline Phosphatase 119 Total Protein 5.1 L Albumin 2.4 L Urine Color Urine Appearance Urine pH Ur Specific [place] Urine Protein Urine Glucose (UA) Urine Ketones Urine Blood Urine Nitrite Ur Leukocyte Esterase Urine WBC (Auto) Urine RBC (Auto) Blood Type A POSITIVE Antibody Screen NEGATIVE 06/20/18 06:53 WBC 19.6 H RBC 2.93 L Hgb 8.4 L Hct 24.3 L MCV 83 MCH 28.5 MCHC 34.4 RDW 15.1 H Plt Count 277 Seg Neutrophils % Lymphocytes % Monocytes % Eosinophils % Basophils % Absolute Neutrophils Absolute Lymphocytes Absolute Monocytes Absolute Eosinophils Absolute Basophils Sodium Potassium Chloride Carbon Dioxide Anion Gap BUN Creatinine Est GFR ( Amer) Est GFR (Non-Af Amer) Glucose Uric Acid Calcium Total Bilirubin AST ALT Alkaline Phosphatase Total Protein Albumin Urine Color Urine Appearance Urine pH Ur Specific Fa[place] Urine Protein Urine Glucose (UA) Urine Ketones Urine Blood Urine Nitrite Ur Leukocyte Esterase Urine WBC (Auto) Urine RBC (Auto) Blood Type Antibody Screen Assessment and Plan(PN) - Assessment and Plan (1) hemorrhage Is this a current diagnosis for this admission?: Yes (2) Obstetrical laceration, second degree Is this a current diagnosis for this admission?: Yes (3) Pre-eclampsia Qualifiers: Trimester: third trimester Qualified Code(s): O14.93 - Unspecified pre- eclampsia, third trimester Is this a current diagnosis for this admission?: Yes - Time Spent with Patient Time with patient: Less than 15 minutes Medications reviewed and adjusted accordingly: Yes - Disposition Anticipated Discharge: Home Within: within 24 hours
[2018-06-20] MEDS: FAMOTIDINE 20 MG TABLET PO SCH ×2 (10:05→22:14)
[2018-06-20] MEDS: DOCUSATE SODIUM 100 MG CAPSULE PO SCH ×2 (10:05→18:03)
[2018-06-20] MEDS: FERROUS SULFATE 325 MG TABLET PO SCH ×2 (10:05→18:03)
[2018-06-20] MEDS: SENNOSIDES/DOCUSATE 8.6-50 MG 1 EACH TABLET PO SCH (10:05)
[2018-06-20] MEDS: PRENATAL VITAMIN W DHA CAPSULE PO SCH (10:05)
--- NOTE | 2018-06-20 12:10 | Delivery Summary ---
Del Sum A-C Datetime Report Generated by CPN: 06/20/2018 12:09 DELIVERY PERSONNEL DELIVERY PERSONNEL: [id number] Delivery Doctor:: Verónica Cadet MD Anesthesiologist:: Jignesh Altman MD Labor and Delivery Nurse:: Rosemary Zavala RNrestaurant hospitality manager Nurse:: Shefali Maynard RN Cost Reduction Engineer/BRAND AMBASSADOR: Yvonne Mora, STONE AND PLATE PREPARER APPRENTICE MATERNAL INFORMATION Delivery Anesthesia: Local Medications After Delivery: Pitocin Drip 20 Units/1000ml NSS; Cytotec 1000mcg Per Rectum/Vagina Estimated Blood Loss (ml): 800 Maternal Complications: Hemorrhage Other Maternal Complications: hemorrhage Provider Comments: Called for delivery from other labor room. Upon arrival head was delivering. I was present for delivery. No shoulder dystocia. no nuchal cord. Cord doubly clamped and cut and to maternal abdomen. Placenta delivered intact spontaneously. Manual exploration of uterus performed due to significant bleeding. Bladder drained with approx 450ml dained. Lower uterine segment atony with large clots noted which were evacuated. 1000mcg Cytotec [place] placed and pitocin IV. Lacerations repaired with good hemostasis of vaginal and perineal lacerations. Poor response of lower uterine segment tone to medications. Hemabate injected into the lower segment. Improved uterine tone. WIll place wood catheter to gravity. 2 grams ANcef given due to uterine exploration. Mother and baby stable upon provider leaving the room. LABOR SUMMARY EDC: 06/27/2018 00:00 No. Babies in Womb: 1 Attempted: Yes Labor Anesthesia: None LABOR INFORMATION Reason for Induction: Pre-Eclampsia Onset of Labor: 06/19/2018 18:31 Complete Dilatation: 06/19/2018 21:01 Other Ripening Agents: pitocin Oxytocin: Induction Group B Beta Strep: Unknown Antibiotics # of Doses: 2 Antibiotics Time of Last Dose: 1901 Name of Antibiotic Given: PCN Steroids Given: None Reason Steroids Not Administered: Not Applicable MEMBRANES Membranes Rupture Method: Artificial Rupture of Membranes: 06/19/2018 18:31 Length of Rupture (hr): 2.80 Amniotic Fluid Color: Clear Amniotic Fluid Amount: Small Amniotic Fluid Odor: Normal STAGES OF LABOR Stage 1 hr: 2 Stage 1 min: 30 Stage 2 hr: 0 Stage 2 min: 18 Stage 3 hr: 1 Stage 3 min: 4 Total Time in Labor hr: 3 Total Time in Labor min: 52 VAGINAL DELIVERY Episiotomy: None Laceration #1: Perineal Laceration Extension #1: Second Degree Laceration #2: Vaginal Laceration Extension #2: N/A Laceration Repair: Yes Laceration Repair Note: 2nd degree perineal laceration repaired in usual fashion and right vaginal sidewall laceration repaired in usual fashion. Sponge Count Correct: N/A Sharps Count Correct: Yes CSECTION DELIVERY Primary Indication: N/A Secondary Indication: N/A CSection Incidence: N/A Labor: N/A Elective: N/A CSection Incision: N/A BABY A INFORMATION Infant Delivery Date/Time: 06/19/2018 21:19 Method of Delivery: Vaginal Born in Route : No : N/A Forceps: N/A Vacuum Extraction: N/A Shoulder Dystocia : No PRESENTATION/POSITION BABY A Presentation: Cephalic Cephalic Presentation: Vertex Vertex Position: Right Occipital Anterior Breech Presentation: N/A PLACENTA INFORMATION BABY A Placenta Delivery Time : 06/19/2018 22:23 Placenta Method of Delivery: Spontaneous Placenta Status: Delivered SCORES BABY A Heart Rate 1 min: >100 bpm Resp Effort 1 min: Good Cry Reflex Irritability 1 min: Cough or Sneeze or Pulls Away Muscle Tone 1 min: Active Motion Color 1 min: Blue/Pale Resuscitation Effort 1 min: Tactile Stimulation SCORE 1 MIN: 8 Heart Rate 5 min: >100 bpm Resp Effort 5 min: Good Cry Reflex Irritability 5 min: Cough or Sneeze or Pulls Away Muscle Tone 5 min: Active Motion Color 5 min: Body Evan, Extremities Blue Resuscitation Effort 5 min: Tactile Stimulation SCORE 5 MIN: 9 INFANT INFORMATION BABY A Gestational Age at Delivery: 38.6 Gestational Status: Early Term- 37- 38.6 Weeks Infant Outcome : Liveborn Condition : Stable Infant Sex: Male IDENTIFICATION BABY A Infant Verification Date/Time: 06/19/2018 22:15 ID Band Number: [id number] Mother's Name Verified: Yes RN Verifying : Gael ZAVALASERENEC Additional Verifying Personnel: Nadeen España RN WEIGHT/LENGTH BABY A Birthweight (gm): 3230 Weight (lb): 7 Weight (oz): 2 Length (in): 19.75 Infant Length (cm): 50.17 CORD INFORMATION BABY A No. Cord Vessels: 3 Nuchal Cord : N/A Cord Blood Taken: Yes-For Eval (Mom's Blood Type - or O+) Infant Suction: Mouth; Nose ASSESSMENT BABY A Infant Complications: None Physical Findings at Delivery: Molding of the Head Infant Respirations: Appears Normal Skin to Skin: Yes Skin to Skin: Yes Research Librarian/ALS Called : No Care By: ENRIQUE Ritchie Transferred To: Remains with Mother BABY B INFORMATION : N/A SIGNATURES Signature: with User ID: Jose : I was personally available for consultation and serving as supervising physician for the MLP.
[2018-06-21] MEDS: IBUPROFEN 800 MG TABLET PO SCH (05:57)
[2018-06-21 08:27] VITALS: BP 120/72
--- NOTE | 2018-06-21 09:18 | PDOC DISCHARGE SUMMARY ---
Final Diagnosis Discharge Date: 06/21/18 - Final Diagnosis (1) Obstetrical laceration, second degree Is this a current diagnosis for this admission?: Yes (2) hemorrhage Is this a current diagnosis for this admission?: Yes (3) Pre-eclampsia Is this a current diagnosis for this admission?: Yes Discharge Data - Discharge Medication Home Medications: Pnv 102/Iron/Folate 1/Dss/Dha [Vitafol Fe+ Docusate Combo Pck] 1 cap PO DAILY Reason(s) for Admission: Induction of Labor, PIH Procedures: NST, Management of Obstetric Complications Intrapartum Procedure(s): Spontaneous Vaginal Delivery, Uterine Exploration Complication(s): Laceration-Perineal Laceration-Degree: 2nd - Diagnosis Test Laboratory: Temp Pulse Resp BP Pulse Ox 97.7 F 70 18 120/72 99 06/21/18 08:15 06/21/18 08:15 06/21/18 08:15 06/21/18 08:15 06/21/18 08:15 06/19/18 06/19/18 06/19/18 09:14 10:05 22:30 RBC 3.61 L 3.64 L Hgb 10.4 L 10.3 L Hct 30.4 L 30.4 L Urine Opiates Screen NEGATIVE 06/20/18 06:53 RBC 2.93 L Hgb 8.4 L Hct 24.3 L Urine Opiates Screen - Discharge information/Instructions Discharge Activity: Balance Activity w/Rest, Pelvic Rest Discharge Diet: Regular Disposition: HOME, SELF-CARE Follow up with: [facility] in: 3, Weeks
[2018-06-21] MEDS: DOCUSATE SODIUM 100 MG CAPSULE PO SCH (09:49)
[2018-06-21] MEDS: SENNOSIDES/DOCUSATE 8.6-50 MG 1 EACH TABLET PO SCH (09:49)
[2018-06-21] MEDS: PRENATAL VITAMIN W DHA CAPSULE PO SCH (09:49)
[2018-06-21] MEDS: FAMOTIDINE 20 MG TABLET PO SCH (09:50)
[2018-06-21] MEDS: FERROUS SULFATE 325 MG TABLET PO SCH (09:50)
== END 2018-06-21 10:07 | disposition home or self-care (01) | DRG 774 ==
LOC: LC 08:58 → LR 11:48 → 2S 06-20 00:51
PROVIDERS: ADMIT Student in an Organized Health Care Education/Training Program; ATTEND Student in an Organized Health Care Education/Training Program
PROC: 10E0XZZ Delivery of Products of Conception, External Approach (ICD-10-PCS; principal; 2018-06-19)
PROC: 0KQM0ZZ Repair Perineum Muscle, Open Approach (ICD-10-PCS; 2018-06-19)
PROC: 0UJD7ZZ Inspection of Uterus and Cervix, Via Natural or Artificial Opening (ICD-10-PCS; 2018-06-19)
PROC: 10907ZC Drainage of Amniotic Fluid, Therapeutic from Products of Conception, Via Natural or Artificial Opening (ICD-10-PCS; 2018-06-19)
PROC: 3E033VJ Introduction of Other Hormone into Peripheral Vein, Percutaneous Approach (ICD-10-PCS; 2018-06-19)
PROC: 4A1HXCZ Monitoring of Products of Conception, Cardiac Rate, External Approach (ICD-10-PCS; 2018-06-19)
PROC: 3E0234Z Introduction of Serum, Toxoid and Vaccine into Muscle, Percutaneous Approach (ICD-10-PCS; 2018-06-21)
DX: O72.1 Other immediate postpartum hemorrhage (principal); O14.94 Unspecified pre-eclampsia, complicating childbirth; O70.1 Second degree perineal laceration during delivery; O34.13 Maternal care for benign tumor of corpus uteri, third trimester; D25.9 Leiomyoma of uterus, unspecified; Z23 Encounter for immunization; Z3A.38 38 weeks gestation of pregnancy; Z37.0 Single live birth
CPT/HCPCS: 36415; 80053; 80307; 81001; 82570; 83615; 84156; 84550; 85025; 85027; 86592; 86850; 86900; 86901; 87081; 90715; J0360; J0690; J2540; J2590; J3010; J3490